=== PATIENT | male | born 1965 ===

== ENCOUNTER 2021-08-19 23:07 | Inpatient (IN) | payer MEDICAID ==
--- NOTE | 2021-08-20 00:22 | Emergency Department Report ---
ED General Adult HPI - General Chief complaint: Medical Clearance Stated complaint: BLEEDING OSTOMY Time Seen by Provider: 08/20/21 00:10 Source: EMS Mode of arrival: Stretcher Limitations: Altered Mental Status, Physical Limitation - History of Present Illness Initial comments: 56-year-old male with a past medical history of diabetes, tach, pancreatitis, traumatic brain injury, with tracheostomy presents to the hospital for bleeding at colostomy site. Bathing patient and change his ostomy bag again had bleeding at the site that would not stop and therefore transferred to the hospital. Patient has a PEG tube, a Martins, and colostomy. This is patient's first visit here and he is previously seen at [place]. Medication list not initially available upon arrival. Patient is nonverbal with functional quadriplegia Severity scale (0 -10): 0 - Related Data Allergies Allergy/AdvReac Type Severity Reaction Status Date / Time No Known Allergies Allergy Verified 08/19/21 23:19 ED Review of Systems ROS: Stated complaint: BLEEDING OSTOMY Other details as noted in HPI Comment: Unobtainable due to pts medical conditions ED Past Medical Hx - Past Medical History Previous Medical History?: Yes Hx Heart Attack/AMI: Yes Hx Diabetes: Yes Additional medical history: PANCREATITIS, TBI - Surgical History Past Surgical History?: Yes ED Physical Exam - General Limitations: Altered Mental Status, Physical Limitation - Other Other exam information: General: No acute distress Head: Atraumatic Eyes: normal appearance Neck: Tracheostomy Chest: Clear to auscultation bilaterally CV: Regular rate and rhythm Abdomen: There is clotted blood at the ostomy stoma without signs of active bleeding. Abdomen soft Back: Normal inspection Extremity: Normal inspection, full range of motion Neuro: Alert, eyes open, nonverbal, functional quadriplegia or ED Course Vital Signs 08/19/21 08/19/21 08/19/21 23:20 23:33 23:45 Pulse Rate 81 84 90 Respiratory 16 18 27 H Rate Blood Pressure 135/67 Blood Pressure 123/81 [Left] O2 Sat by Pulse 98 97 Oximetry O2 Sat by Pulse Oximetry [ Assessment] 08/20/21 08/20/21 08/20/21 00:01 00:10 00:13 Pulse Rate 93 H Respiratory 15 Rate Blood Pressure 109/83 Blood Pressure [Left] O2 Sat by Pulse 97 100 Oximetry O2 Sat by Pulse 100 Oximetry [ Assessment] 08/20/21 08/20/21 08/20/21 00:15 00:31 00:45 Pulse Rate 92 H 90 89 Respiratory 22 19 20 Rate Blood Pressure 113/82 113/82 110/79 Blood Pressure [Left] O2 Sat by Pulse 96 96 97 Oximetry O2 Sat by Pulse Oximetry [ Assessment] 08/20/21 08/20/21 08/20/21 01:01 01:15 01:31 Pulse Rate 89 87 86 Respiratory 18 18 16 Rate Blood Pressure 106/77 105/77 108/79 Blood Pressure [Left] O2 Sat by Pulse 96 97 96 Oximetry O2 Sat by Pulse Oximetry [ Assessment] 08/20/21 08/20/21 08/20/21 01:45 02:01 02:15 Pulse Rate 87 87 86 Respiratory 18 17 22 Rate Blood Pressure 107/76 102/77 109/77 Blood Pressure [Left] O2 Sat by Pulse 97 96 97 Oximetry O2 Sat by Pulse Oximetry [ Assessment] 08/20/21 08/20/21 08/20/21 02:31 02:45 03:01 Pulse Rate 87 86 88 Respiratory 18 20 18 Rate Blood Pressure 109/71 120/81 108/74 Blood Pressure [Left] O2 Sat by Pulse 98 99 99 Oximetry O2 Sat by Pulse Oximetry [ Assessment] 08/20/21 08/20/21 08/20/21 03:15 03:31 03:45 Pulse Rate 84 82 83 Respiratory 17 17 22 Rate Blood Pressure 103/73 112/73 110/72 Blood Pressure [Left] O2 Sat by Pulse 98 99 99 Oximetry O2 Sat by Pulse Oximetry [ Assessment] 08/20/21 04:01 Pulse Rate 90 Respiratory 15 Rate Blood Pressure 104/75 Blood Pressure [Left] O2 Sat by Pulse 97 Oximetry O2 Sat by Pulse Oximetry [ Assessment] - Reevaluation(s) Reevaluation #1: 08/20/21 01:32 Patient's informed that bleeding has stopped. Normal H&H. A plan for admission for IV fluids for dehydration and CT abdomen will be performed - Consultations Consultation #1: 08/20/21 05:44 dr Dow informed of ct results. ED Medical Decision Making - Lab Data Result diagrams: 08/20/21 00:30 08/20/21 00:30 Lab Results 02/20/22 02/20/22 02/20/22 Range/Units 00:30 00:30 00:30 WBC 8.0 (4.5-11.0) K/mm3 RBC 4.34 (3.65-5.03) M/mm3 Hgb 13.5 (11.8-15.2) gm/dl Hct 42.5 (35.5-45.6) % MCV 98 H (84-94) fl MCH 31 (28-32) pg MCHC 32 (32-34) % RDW 15.6 H (13.2-15.2) % Plt Count 178 (140-440) K/mm3 Lymph % (Auto) 30.5 (13.4-35.0) % [place] % (Auto) 6.2 (0.0-7.3) % Eos % (Auto) 2.9 (0.0-4.3) % Baso % (Auto) 0.6 (0.0-1.8) % Lymph # (Auto) 2.4 (1.2-5.4) K/mm3 [place] # (Auto) 0.5 (0.0-0.8) K/mm3 Eos # (Auto) 0.2 (0.0-0.4) K/mm3 Baso # (Auto) 0.0 (0.0-0.1) K/mm3 Seg Neutrophils % 59.8 (40.0-70.0) % Seg Neutrophils # 4.8 (1.8-7.7) K/mm3 PT 15.4 H (12.2-14.9) Sec. INR 1.10 (0.87-1.13) APTT 20.6 L (24.2-36.6) Sec. Sodium 158 H (137-145) mmol/L Potassium 4.5 (3.6-5.0) mmol/L Chloride 116.7 H (98-107) mmol/L Carbon Dioxide 24 (22-30) mmol/L Anion Gap 22 mmol/L BUN 59 H (9-20) mg/dL Creatinine 1.5 H (0.8-1.3) mg/dL Estimated GFR 49 ml/min BUN/Creatinine Ratio 39 % Glucose 122 H (75-100) mg/dL Calcium 10.7 H (8.4-10.2) mg/dL Total Bilirubin 0.60 (0.1-1.2) mg/dL AST 25 (5-40) units/L ALT 13 (7-56) units/L Alkaline Phosphatase 143 H (35-129) units/L Total Protein 8.6 H (6.3-8.2) g/dL Albumin 4.4 (3.9-5) g/dL Albumin/Globulin Ratio 1.0 % Blood Type Antibody Screen 08/20/21 Range/Units 00:30 WBC (4.5-11.0) K/mm3 RBC (3.65-5.03) M/mm3 Hgb (11.8-15.2) gm/dl Hct (35.5-45.6) % MCV (84-94) fl MCH (28-32) pg MCHC (32-34) % RDW (13.2-15.2) % Plt Count (140-440) K/mm3 Lymph % (Auto) (13.4-35.0) % [place] % (Auto) (0.0-7.3) % Eos % (Auto) (0.0-4.3) % Baso % (Auto) (0.0-1.8) % Lymph # (Auto) (1.2-5.4) K/mm3 [place] # (Auto) (0.0-0.8) K/mm3 Eos # (Auto) (0.0-0.4) K/mm3 Baso # (Auto) (0.0-0.1) K/mm3 Seg Neutrophils % (40.0-70.0) % Seg Neutrophils # (1.8-7.7) K/mm3 PT (12.2-14.9) Sec. INR (0.87-1.13) APTT (24.2-36.6) Sec. Sodium (137-145) mmol/L Potassium (3.6-5.0) mmol/L Chloride (98-107) mmol/L Carbon Dioxide (22-30) mmol/L Anion Gap mmol/L BUN (9-20) mg/dL Creatinine (0.8-1.3) mg/dL Estimated GFR ml/min BUN/Creatinine Ratio % Glucose (75-100) mg/dL Calcium (8.4-10.2) mg/dL Total Bilirubin (0.1-1.2) mg/dL AST (5-40) units/L ALT (7-56) units/L Alkaline Phosphatase (35-129) units/L Total Protein (6.3-8.2) g/dL Albumin (3.9-5) g/dL Albumin/Globulin Ratio % Blood Type O POSITIVE Antibody Screen Negative - Radiology Data Radiology results: report reviewed CT ABDOMEN AND PELVIS WITHOUT CONTRAST INDICATION / CLINICAL INFORMATION: bleeding from colostomy stoma. TECHNIQUE: Axial CT images were obtained through the abdomen and pelvis without IV contrast. All CT scans at this location are performed using CT dose reduction for ALARA by means of automated exposure control. COMPARISON: None available. FINDINGS: LOWER CHEST: There are asymmetric airspace opacities within the right lung base. Mild groundglass opacities in the left lung base. LIVER: Indeterminate 2.8 cm hypoattenuating lesion near the dome of the liver anteriorly GALLBLADDER/BILIARY TREE: Gallbladder is unremarkable. The common bile duct is dilated, measuring 1.6 cm. There is abrupt narrowing the region of the pancreatic head. Small amount of gas in the region of the distal common bile duct likely reflects pneumobilia. PANCREAS: There is marked segmental dilation of the pancreatic duct at the body, measuring 1.5 cm. There is abrupt narrowing in the region of the pancreatic head. No acute inflammation SPLEEN: No significant abnormality ADRENALS: No significant abnormality KIDNEYS / URETER: Nonobstructing bilateral nephrolithiasis. No ureteral stone o r hydronephrosis. URINARY BLADDER: Layering stones noted within the bladder, which is partially d ecompressed by Martins catheter. REPRODUCTIVE ORGANS: No significant abnormality STOMACH / BOWEL: Gastrojejunostomy with balloon inflated within the distal stomach. The catheter extends to the midportion of the jejunum. The small bowel is normal in caliber without localized inflammation. Scattered colonic diverticula without evidence of diverticulitis. Normal appendix. LYMPH NODES: Mildly enlarged left periaortic lymph nodes are present. Additional mildly enlarged mesenteric lymph nodes in the central and right abdomen. VASCULATURE: Mild atherosclerotic calcification without acute abnormality. OTHER: Linear tracking extends from the region of the pancreas to the right abdominal wall, could reflect fistula. 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 No acute osseous findings. IMPRESSION: 1. Dilation of the common bile duct and pancreatic duct with irregular soft tissue in the region of the pancreatic head and regional lymphadenopathy, suspicious for pancreatic neoplasm. Soft tissue tract extending from the region of the pancreatic head to the right abdominal wall, likely reflecting fistula. This may be postsurgical in etiology. 2. Airspace consolidation of the right lung base and mild groundglass opacities in the left lung base, concerning for pneumonia. 3. Indeterminate lesion at the hepatic dome, suspicious for metastatic disease. 4. Bilateral nonobstructive renal stones and bladder stones. No evidence of obstructive uropathy. The bladder is partially decompressed by Martins catheter. 5. Other chronic and incidental findings as above. - Medical Decision Making 56-year-old male presents to the hospital with complaints of bleeding from colostomy. Bleeding resolved in the ED. H&H normal. No signs of hypotension. CT abdomen pelvis without contrast shows pancreatic mass and other incidental findings. Possible pulmonary infiltrate noted however, no signs of hypoxia, leukocytosis, or reported fever. IV fluids ordered for dehydration with mild renal insufficiency. Critical Care Time: No Critical care attestation.: If time is entered above; I have spent that time in minutes in the direct care o f this critically ill patient, excluding procedure time. ED Disposition Clinical Impression: Bleeding from colostomy, Tracheostomy dependence, Pancreatic mass, History of traumatic brain injury, Dehydration, Renal insufficiency Disposition: 09 ADMITTED INPATIENT Is pt being admited?: Yes Condition: Stable
[2021-08-20 00:46] LABS: Basophils % (Auto) 0.6 % (0.0-1.8); Eosinophils # (Auto) 0.2 K/mm3 (0.0-0.4); Eosinophils % (Auto) 2.9 % (0.0-4.3); Hematocrit 42.5 % (35.5-45.6); Hemoglobin 13.5 gm/dl (11.8-15.2); Lymphocytes # (Auto) 2.4 K/mm3 (1.2-5.4); Lymphocytes % (Auto) 30.5 % (13.4-35.0); Mean Corpuscular HGB Conc 32 % (32-34); Mean Corpuscular Volume 98 fl (84-94); Monocytes # (Auto) 0.5 K/mm3 (0.0-0.8); Monocytes % (Auto) 6.2 % (0.0-7.3); Platelet Count 178 K/mm3 (140-440); Red Blood Count 4.34 M/mm3 (3.65-5.03); Red Cell Distribution Width 15.6 % (13.2-15.2)
[2021-08-20 01:10] LABS: Albumin 4.4 g/dL (3.9-5); Calcium 10.7 mg/dL (8.4-10.2)
[2021-08-20 01:16] LABS: INR 1.1 (0.87-1.13); Partial Thromboplastin Time 20.6 Sec. (24.2-36.6)
[2021-08-20] MEDS ORDERED: SODIUM CHLORIDE 0.9% 1000 ML 1,000 ML IV ONE (01:29)
[2021-08-20] MEDS ORDERED: ONDANSETRON 4 MG/2 ML INJ IV PRN (02:19)
[2021-08-20] MEDS ORDERED: MORPHINE 4 MG/1 ML INJ IV PRN (02:19)
[2021-08-20] MEDS ORDERED: MORPHINE 2 MG/1 ML INJ IV PRN (02:19)
[2021-08-20] MEDS ORDERED: ACETAMINOPHEN 325 MG TAB PO PRN (02:19)
[2021-08-20] MEDS ORDERED: MAGNESIUM HYDROXIDE (MOM) ORAL LIQD UDC PO PRN (02:19)
[2021-08-20] MEDS ORDERED: DEXTROSE 50% IN WATER (25GM) 50 ML SYRINGE IV PRN (02:19)
--- NOTE | 2021-08-20 02:29 | History and Physical Report ---
History of Present Illness Date of examination: 08/20/21 Date of admission: 08/20/2021 Chief complaint: Colostomy site bleeding History of present illness: 56-year-old male with known history of diabetes mellitus, traumatic brain injury, history of pancreatitis, history of trach placement presents to the emergency room today with bleeding at the colostomy site. Patient was said to have been cared for while bathing colostomy bag was found to be bleeding and graft was transferred to the hospital for further evaluation. Most of the history was obtained from the ER staff as patient is nonverbal. Patient is also quadriplegic. Work-up in the emergency room today, CT of the abdomen and pelvis reveals: 1. Dilation of the common bile duct and pancreatic duct with irregular soft tissue in the region of the pancreatic head and regional lymphadenopathy, suspicious for pancreatic neoplasm. Soft tissue tract extending from the region of the pancreatic head to the right abdominal wall, likely reflecting fistula. This may be postsurgical in etiology. 2. Airspace consolidation of the right lung base and mild groundglass opacities in the left lung base, concerning for pneumonia. 3. Indeterminate lesion at the hepatic dome, suspicious for metastatic disease. 4. Bilateral nonobstructive renal stones and bladder stones. No evidence of obstructive uropathy. The bladder is partially decompressed by Martins catheter. Lab reveals hyponatremia 158, BUN of 15 and creatinine of 1.5. Patient placed on IV fluid for dehydration. Will also be placed on empiric IV antibiotics for underlying pneumonia. Past History Past Medical History: acute SC, diabetes, hypertension, other (TBI, pancreatitis) Past Surgical History: Other (PEG tube placement, trach placement, colostomy placement) Social history: no significant social history Family history: no significant family history Medications and Allergies Allergies Allergy/AdvReac Type Severity Reaction Status Date / Time No Known Allergies Allergy Verified 08/19/21 23:19 Active Meds: Active Medications Sodium Chloride (Nacl 0.9% 1000 Ml) 1,000 mls @ 999 mls/hr IV BOLUS ONE Stop: 08/20/21 02:29 Review of Systems ROS unobtainable: due to mental status Exam - Constitutional Vitals: Temp Pulse Resp BP Pulse Ox 89 18 106/77 96 08/20/21 01:01 08/20/21 01:01 08/20/21 01:01 08/20/21 01:01 General appearance: Present: no acute distress, well-nourished - EENT Eyes: Present: PERRL, EOM intact. Absent: scleral icterus ENT: hearing intact, clear oral mucosa, dentition normal - Neck Neck: Present: supple, normal ROM - Respiratory Respiratory effort: normal, other (Trach in place) Respiratory: bilateral: CTA - Cardiovascular Rhythm: regular Heart Sounds: Present: S1 & S2. Absent: gallop, systolic murmur, diastolic murmur, rub, click - Extremities Extremities: no ischemia, pulses intact, pulses symmetrical, No edema, normal temperature, normal color, Full ROM Peripheral Pulses: within normal limits - Abdominal General gastrointestinal: Present: soft, non-tender, non-distended, normal bowel sounds, other (PEG tube in place, colostomy tube in place). Absent: mass - Integumentary Integumentary: Present: clear, warm, dry, normal turgor. Absent: rash - Musculoskeletal Musculoskeletal: strength equal bilaterally - Psychiatric Psychiatric: cooperative - Neurologic Neurologic: CNII-XII intact Results - Labs CBC & Chem 7: 08/20/21 00:30 08/20/21 00:30 Labs: Abnormal lab results 08/20/21 08/20/21 08/20/21 Range/Units 00:30 00:30 00:30 MCV 98 H (84-94) fl RDW 15.6 H (13.2-15.2) % PT 15.4 H (12.2-14.9) Sec. APTT 20.6 L (24.2-36.6) Sec. Sodium 158 H (137-145) mmol/L Chloride 116.7 H (98-107) mmol/L BUN 59 H (9-20) mg/dL Creatinine 1.5 H (0.8-1.3) mg/dL Glucose 122 H (75-100) mg/dL Calcium 10.7 H (8.4-10.2) mg/dL Alkaline Phosphatase 143 H (35-129) units/L Total Protein 8.6 H (6.3-8.2) g/dL Assessment and Plan - Patient Problems (1) Bleeding from colostomy Current Visit: Yes Status: Acute Plan to address problem: Consult placed to general surgery for evaluation and recommendations. We will monitor CBC. (2) Dehydration Current Visit: Yes Status: Acute Plan to address problem: Patient placed on IV fluid. We will monitor chemistry. (3) History of traumatic brain injury Current Visit: Yes Status: Acute (4) Renal insufficiency Current Visit: Yes Status: Acute Plan to address problem: Consult placed to nephrology for evaluation. We will continue on IV fluid. (5) Tracheostomy dependence Current Visit: Yes Status: Acute Plan to address problem: Stable. (6) DVT prophylaxis Current Visit: Yes Status: Acute Plan to address problem: Patient placed on sequential compression device. (7) Full code status Current Visit: Yes Status: Acute Plan to address problem: Patient is full code. (8) Pneumonia Current Visit: Yes Status: Acute Plan to address problem: Patient placed on empiric IV antibiotics. We will also screen for COVID-19.
[2021-08-20] MEDS ORDERED: SODIUM CHLORIDE 0.9% 1000 ML 1,000 ML IV SCH (02:30)
[2021-08-20] MEDS ORDERED: DEXTROSE 10% *Hypoglycemia IV PRN (02:31)
--- NOTE | 2021-08-20 04:56 | Cat Scan Report ---
CT ABDOMEN AND PELVIS WITHOUT CONTRAST INDICATION / CLINICAL INFORMATION: bleeding from colostomy stoma. TECHNIQUE: Axial CT images were obtained through the abdomen and pelvis without IV contrast. All CT scans at this location are performed using CT dose reduction for ALARA by means of automated exposure control. COMPARISON: None available. FINDINGS: LOWER CHEST: There are asymmetric airspace opacities within the right lung base. Mild groundglass opa cities in the left lung base. LIVER: Indeterminate 2.8 cm hypoattenuating lesion near the dome of the liver anteriorly GALLBLADDER/BILIARY TREE: Gallbladder is unremarkable. The common bile duct is dilated, measuring 1.6 cm. There is abrupt narrowing the region of the pancreatic head. Small amount of gas in the region o f the distal common bile duct likely reflects pneumobilia. PANCREAS: There is marked segmental dilation of the pancreatic duct at the body, measuring 1.5 cm. Th ere is abrupt narrowing in the region of the pancreatic head. No acute inflammation SPLEEN: No significant abnormality ADRENALS: No significant abnormality KIDNEYS / URETER: Nonobstructing bilateral nephrolithiasis. No ureteral stone or hydronephrosis. URINARY BLADDER: Layering stones noted within the bladder, which is partially decompressed by Martins c atheter. REPRODUCTIVE ORGANS: No significant abnormality STOMACH / BOWEL: Gastrojejunostomy with balloon inflated within the distal stomach. The catheter exte nds to the midportion of the jejunum. The small bowel is normal in caliber without localized inflamma tion. Scattered colonic diverticula without evidence of diverticulitis. Normal appendix. LYMPH NODES: Mildly enlarged left periaortic lymph nodes are present. Additional mildly enlarged mese nteric lymph nodes in the central and right abdomen. VASCULATURE: Mild atherosclerotic calcification without acute abnormality. OTHER: Linear tracking extends from the region of the pancreas to the right abdominal wall, could ref lect fistula. SKELETAL SYSTEM: Extensive heterotopic ossification involving both hips with complete bone bridging e xtending from the left lesser trochanter to the anterior and posterior acetabulum. No acute osseous f indings. IMPRESSION: 1. Dilation of the common bile duct and pancreatic duct with irregular soft tissue in the region of t he pancreatic head and regional lymphadenopathy, suspicious for pancreatic neoplasm. Soft tissue trac t extending from the region of the pancreatic head to the right abdominal wall, likely reflecting fis yuriy. This may be postsurgical in etiology. 2. Airspace consolidation of the right lung base and mild groundglass opacities in the left lung base , concerning for pneumonia. 3. Indeterminate lesion at the hepatic dome, suspicious for metastatic disease. 4. Bilateral nonobstructive renal stones and bladder stones. No evidence of obstructive uropathy. The bladder is partially decompressed by Martins catheter. 5. Other chronic and incidental findings as above. Signer Name: Aristides Funes MD Signed: 08/20/2021 4:51 AM Workstation Name: [id number]
[2021-08-20] MEDS ORDERED: VANCOMYCIN PHARMACY TO DOSE IV SCH (07:00)
[2021-08-20] MEDS ORDERED: VANCOMYCIN 1,750 MG in SODIUM CHLORIDE 0.9% 500 ML 500 ML IV SCH (07:45)
[2021-08-20] MEDS ORDERED: CEFEPIME/NS 2 GM/100 ML 2 GM/100 ML BAG IV SCH (08:00)
[2021-08-20] MEDS: INSULIN LISPRO 100 UNIT/ML SUB-Q SCH ×4 (08:15→22:27)
[2021-08-20 08:23] LABS: C-Reactive Protein 3.1 mg/dL (0.00-1.30)
--- NOTE | 2021-08-20 09:14 | Consultation ---
History of Present Illness Consult date: 08/20/21 Reason for consult: wound care - History of present illness History of present illness: General surgery called to see 56-year-old male presented from nursing facility with " bleeding from colostomy". Patient has a complicated surgical and medical history to include paraplegia, tracheostomy, G-tube, pancreatitis. Past History Past Medical History: acute [place], diabetes, hypertension, other (TBI, pancreatitis) Past Surgical History: Other (PEG tube placement, trach placement, colostomy placement) Social history: no significant social history Family history: no significant family history Medications and Allergies Allergies Allergy/AdvReac Type Severity Reaction Status Date / Time No Known Allergies Allergy Verified 08/19/21 23:19 Active Meds: Active Medications Acetaminophen (Acetaminophen 325 Mg Tab) 650 mg PO Q4H PRN PRN Reason: Pain MILD(1-3)/Fever >100.5/RIBERA Dextrose (Dextrose 10% *Hypoglycemia) 0 ml IV DIRECT PRN; Protocol PRN Reason: Hypoglycemia Sodium Chloride (Nacl 0.9% 1000 Ml) 1,000 mls @ 125 mls/hr IV DIRECT TRACEE Last Admin: 08/20/21 06:25 Dose: 125 mls/hr Levofloxacin/Dextrose (Levaquin 750mg/150ml) 750 mg in 150 mls @ 100 mls/hr IV Q24H TRACEE; Protocol Last Admin: 08/20/21 08:15 Dose: 100 mls/hr Cefepime HCl (Cefepime/Ns 2 Gm/100 Ml) 2 gm in 100 mls @ 200 mls/hr IV Q8H TRACEE; Protocol Last Admin: 08/20/21 08:15 Dose: 200 mls/hr Vancomycin HCl 1,750 mg/ (Sodium Chloride) 535 mls @ 333.333 mls/hr IV Q24H TRACEE Insulin Human Lispro (Insulin Lispro 100 Unit/Ml) 0 unit SUB-Q ACHS TRACEE; Kelsi col Last Admin: 08/20/21 08:15 Dose: 2 unit Magnesium Hydroxide (Magnesium Hydroxide (Mom) Oral Liqd Udc) 30 ml PO Q4H PRN PRN Reason: Constipation Morphine Sulfate (Morphine 2 Mg/1 Ml Inj) 2 mg IV Q4H PRN PRN Reason: Pain, Moderate (4-6) Morphine Sulfate (Morphine 4 Mg/1 Ml Inj) 4 mg IV Q4H PRN PRN Reason: Pain , Severe (7-10) Ondansetron HCl (Ondansetron 4 Mg/2 Ml Inj) 4 mg IV Q8H PRN PRN Reason: Nausea And Vomiting Sodium Chloride (Sodium Chloride 0.9% 10 Ml Flush Syringe) 10 ml IV BID TRACEE Sodium Chloride (Sodium Chloride 0.9% 10 Ml Flush Syringe) 10 ml IV PRN PRN PRN Reason: LINE FLUSH Review of Systems ROS unobtainable: due to mental status Exam Vital Signs Pulse Resp BP Pulse Ox 81 16 123/81 98 08/19/21 23:20 08/19/21 23:20 08/19/21 23:20 08/19/21 23:20 - General physical appearance Positive: no distress, no pain, chronically ill - Eyes Negative: icteric - Respiratory Positive: normal expansion, normal respiratory effort, other (Tracheostomy in place) - Cardiovascular Heart Sounds: Present: S1 & S2 - Extremities Extremities: no ischemia - Abdomen Abdomen: Present: other (Soft, nontender, G-tube in place, ostomy appliance over right midabdomen more consistent with fistula than colostomy. Clean with no active bleeding) Results - Labs 08/20/21 00:30 08/20/21 07:19 Abnormal lab results 08/20/21 08/20/21 08/20/21 Range/Units 00:30 00:30 00:30 MCV 98 H (84-94) fl RDW 15.6 H (13.2-15.2) % PT 15.4 H (12.2-14.9) Sec. APTT 20.6 L (24.2-36.6) Sec. D-Dimer (0-234) ng/mlDDU Sodium 158 H (137-145) mmol/L Chloride 116.7 H (98-107) mmol/L BUN 59 H (9-20) mg/dL Creatinine 1.5 H (0.8-1.3) mg/dL Glucose 122 H (75-100) mg/dL POC Glucose (70-105) mg/dL Calcium 10.7 H (8.4-10.2) mg/dL Ferritin (30.0-300.0) ng/mL Alkaline Phosphatase 143 H (35-129) units/L C-Reactive Protein (0.00-1.30) mg/dL Total Protein 8.6 H (6.3-8.2) g/dL 08/20/21 08/20/21 08/20/21 Range/Units 07:19 07:19 07:19 MCV (84-94) fl RDW (13.2-15.2) % PT (12.2-14.9) Sec. APTT (24.2-36.6) Sec. D-Dimer 342.69 H (0-234) ng/mlDDU Sodium (137-145) mmol/L Chloride (98-107) mmol/L BUN (9-20) mg/dL Creatinine (0.8-1.3) mg/dL Glucose 123 H (75-100) mg/dL POC Glucose (70-105) mg/dL Calcium (8.4-10.2) mg/dL Ferritin 373.6 H (30.0-300.0) ng/mL Alkaline Phosphatase (35-129) units/L C-Reactive Protein 3.10 H (0.00-1.30) mg/dL Total Protein (6.3-8.2) g/dL 08/20/21 Range/Units 07:44 MCV (84-94) fl RDW (13.2-15.2) % PT (12.2-14.9) Sec. APTT (24.2-36.6) Sec. D-Dimer (0-234) ng/mlDDU Sodium (137-145) mmol/L Chloride (98-107) mmol/L BUN (9-20) mg/dL Creatinine (0.8-1.3) mg/dL Glucose (75-100) mg/dL POC Glucose 117 H (70-105) mg/dL Calcium (8.4-10.2) mg/dL Ferritin (30.0-300.0) ng/mL Alkaline Phosphatase (35-129) units/L C-Reactive Protein (0.00-1.30) mg/dL Total Protein (6.3-8.2) g/dL Diabetes panel 08/20/21 08/20/21 Range/Units 00:30 07:19 Sodium 158 H (137-145) mmol/L Potassium 4.5 (3.6-5.0) mmol/L Chloride 116.7 H (98-107) mmol/L Carbon Dioxide 24 (22-30) mmol/L BUN 59 H (9-20) mg/dL Creatinine 1.5 H (0.8-1.3) mg/dL Glucose 122 H 123 H (75-100) mg/dL Calcium 10.7 H (8.4-10.2) mg/dL AST 25 (5-40) units/L ALT 13 (7-56) units/L Alkaline Phosphatase 143 H (35-129) units/L Total Protein 8.6 H (6.3-8.2) g/dL Albumin 4.4 (3.9-5) g/dL Calcium panel 08/20/21 Range/Units 00:30 Calcium 10.7 H (8.4-10.2) mg/dL Albumin 4.4 (3.9-5) g/dL Pituitary panel 08/20/21 08/20/21 Range/Units 00:30 07:19 Sodium 158 H (137-145) mmol/L Potassium 4.5 (3.6-5.0) mmol/L Chloride 116.7 H (98-107) mmol/L Carbon Dioxide 24 (22-30) mmol/L BUN 59 H (9-20) mg/dL Creatinine 1.5 H (0.8-1.3) mg/dL Glucose 122 H 123 H (75-100) mg/dL Calcium 10.7 H (8.4-10.2) mg/dL Adrenal panel 08/20/21 08/20/21 Range/Units 00:30 07:19 Sodium 158 H (137-145) mmol/L Potassium 4.5 (3.6-5.0) mmol/L Chloride 116.7 H (98-107) mmol/L Carbon Dioxide 24 (22-30) mmol/L BUN 59 H (9-20) mg/dL Creatinine 1.5 H (0.8-1.3) mg/dL Glucose 122 H 123 H (75-100) mg/dL Calcium 10.7 H (8.4-10.2) mg/dL Total Bilirubin 0.60 (0.1-1.2) mg/dL AST 25 (5-40) units/L ALT 13 (7-56) units/L Alkaline Phosphatase 143 H (35-129) units/L Total Protein 8.6 H (6.3-8.2) g/dL Albumin 4.4 (3.9-5) g/dL - Imaging CT scan - abdomen: report reviewed, image reviewed CT scan - pelvis: report reviewed, image reviewed Assessment and Plan 56-year-old male with report of bleeding from ostomy which is likely a fistula. CT scan suggest fistula from pancreas. No active bleeding appreciated. Patient is afebrile and stable. No surgical intervention warranted at this time. Of note patient has pancreatic mass seen on CT scan will consult GI for work-up if not already done.
[2021-08-20] MEDS ORDERED: SODIUM BICARBONATE 325 MG TAB FEEDTUBE PRN (11:34)
[2021-08-20] MEDS ORDERED: LIPASE 10,500/PROTEASE 25,000/AMYLASE 43,750 (UNITS) DR CAP FEEDTUBE PRN (11:34)
[2021-08-20] MEDS ORDERED: SIMPLE SYRUP 15 ML FEEDTUBE PRN ×2 (11:34)
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
--- NOTE | 2021-08-20 14:16 | Consultation ---
History of Present Illness - Reason for Consult Consult date: 08/20/21 acute renal failure, hypernatremia - History of Present Illness Mr. Del Real is a 56-year-old quadraplegic male with hx of TBI w/ trach, type II diabetes, and pancreatitis who presented to the ED w/ c/o bleeding at colostomy site. While changing colostomy bag, patient was noted to have bleeding at ostomy site that would not stop. Labs at admission were notable for Na 158, BUN 59, SCr 1.5. Nephrology has been consulted for management of hypernatremia. Imaging notable for pancreatic head soft tissue mass and pancreatic fistula Past History Past Medical History: acute [place], diabetes, hypertension, other (TBI, pancreatitis) Past Surgical History: Other (PEG tube placement, trach placement, colostomy placement) Social history: no significant social history Family history: no significant family history Medications and Allergies Allergies Allergy/AdvReac Type Severity Reaction Status Date / Time No Known Allergies Allergy Verified 08/19/21 23:19 Active Meds: Active Medications Acetaminophen (Acetaminophen 325 Mg Tab) 650 mg PO Q4H PRN PRN Reason: Pain MILD(1-3)/Fever >100.5/RIBERA Lipase/Protease/Amylase (Lipase 10,500/Protease 25,000/Amylase 43,750 (Units) Dr Reynolds) 1 each FEEDTUBE PRN PRN PRN Reason: For Clogged Feeding Tube Dextrose (Dextrose 10% *Hypoglycemia) 0 ml IV DIRECT PRN; Protocol PRN Reason: Hypoglycemia Sodium Chloride (Nacl 0.9% 1000 Ml) 1,000 mls @ 125 mls/hr IV DIRECT TRACEE Last Admin: 08/20/21 06:25 Dose: 125 mls/hr Levofloxacin/Dextrose (Levaquin 750mg/150ml) 750 mg in 150 mls @ 100 mls/hr IV Q24H TRACEE; Protocol Last Admin: 08/20/21 08:15 Dose: 100 mls/hr Vancomycin HCl 1,500 mg/ (Sodium Chloride) 530 mls @ 333.333 mls/hr IV Q24H TRACEE Cefepime HCl (Cefepime/Ns 2 Gm/100 Ml) 2 gm in 100 mls @ 200 mls/hr IV Q12H TRACEE; Protocol Insulin Human Lispro (Insulin Lispro 100 Unit/Ml) 0 unit SUB-Q ACHS TRACEE; Protocol Last Admin: 08/20/21 11:55 Dose: Not Given Magnesium Hydroxide (Magnesium Hydroxide (Mom) Oral Liqd Udc) 30 ml PO Q4H PRN PRN Reason: Constipation Morphine Sulfate (Morphine 2 Mg/1 Ml Inj) 2 mg IV Q4H PRN PRN Reason: Pain, Moderate (4-6) Morphine Sulfate (Morphine 4 Mg/1 Ml Inj) 4 mg IV Q4H PRN PRN Reason: Pain , Severe (7-10) Ondansetron HCl (Ondansetron 4 Mg/2 Ml Inj) 4 mg IV Q8H PRN PRN Reason: Nausea And Vomiting Simple Syrup (Simple Syrup 15 Ml) 15 ml FEEDTUBE PRN PRN PRN Reason: Hypoglycemia Simple Syrup (Simple Syrup 15 Ml) 30 ml FEEDTUBE PRN PRN PRN Reason: Hypoglycemia Sodium Bicarbonate (Sodium Bicarbonate 325 Mg Tab) 325 mg FEEDTUBE PRN PRN PRN Reason: For Clogged Feeding Tube Sodium Chloride (Sodium Chloride 0.9% 10 Ml Flush Syringe) 10 ml IV BID [facility] Last Admin: 08/20/21 09:44 Dose: 10 ml Sodium Chloride (Sodium Chloride 0.9% 10 Ml Flush Syringe) 10 ml IV PRN PRN PRN Reason: LINE FLUSH Review of Systems ROS unobtainable: due to mental status Exam - Vital Signs Vital signs: Vital Signs Pulse Resp BP Pulse Ox 81 16 123/81 98 08/19/21 23:20 08/19/21 23:20 08/19/21 23:20 08/19/21 23:20 - General Appearance General appearance: well-developed, well-nourished EENT: ATNC Neck: Present: Other (trach) Respiratory: Decreased Breath Sounds Heart: regular, S1S2 Gastrointestinal: Present: other (PEG tube) Integumentary: no rash, warm and dry Musculoskeletal: Present: other (no edema) Results - Lab Results 08/20/21 00:30 08/20/21 07:19 Most recent lab results Calcium 10.7 mg/dL (8.4-10.2) H 08/20/21 00:30 Assessment and Plan Impression: * Acute kidney injury secondary to dehydration * Hypernatremia * Pancreatic mass * Bilateral PNA --CT abd/pelvis: Airspace consolidation of the right lung base and mild groundglass opacities in the left lung base --COVID 19 PCR negative (Aug 19) * Pancreaticocutaneous fistula * Nephrolithiasis, nonobstructive * Quadraplegia * Chronic respiratory failure s/p trach Plan: * Start free H2O w/ TF - 200ml [id number] - discussed with RN * Start D5W 100ml/hour - discussed with RN * Obtain U/A, urine lytes * Abd/Pelvis CT reviewed - no hydro, bilateral stones which are nonobstructive * Abx per primary team - Vanco/Cefepime/Levaquin * Surgery recommendations noted * GI consultation pending * Avoid potential nephrotoxins * Dose medications for renal function - monitor Vanco levels closely * AM labs ordered
[2021-08-20] MEDS: DEXTROSE 5% IN WATER 1,000 ML IV SCH (15:37)
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
[2021-08-20] MEDS: CEFEPIME/NS 2 GM/100 ML 2 GM/100 ML BAG IV SCH (20:07)
[2021-08-20 22:49] LABS: Amorphous Crystals,Urine Few; Bacteria,Urine 3+ /HPF (Negative); Bilirubin,Urine NEG (Negative); Blood,Urine LG (Negative); Color,Urine Yellow (Yellow); Hyaline Casts,Urine 7 /LPF; Mucus,Urine 2+ /HPF; Urobilinogen,Urine < 2.0 mg/dL (<2.0)
[2021-08-20 22:50] LABS: RBC,Urine > 182.0 /HPF (0.0-6.0)
[2021-08-20 23:03] LABS: Creatinine,Urine 106.4 mg/dL (0.1-20.0)
[2021-08-21] MEDS: DEXTROSE 5% IN WATER 1,000 ML IV SCH (01:06)
[2021-08-21] MEDS: CEFEPIME/NS 2 GM/100 ML 2 GM/100 ML BAG IV SCH ×2 (08:37→21:33)
[2021-08-21 09:12] LABS: Basophils % (Auto) 0.2 % (0.0-1.8); Eosinophils # (Auto) 0.2 K/mm3 (0.0-0.4); Eosinophils % (Auto) 3.6 % (0.0-4.3); Hematocrit 34.2 % (35.5-45.6); Hemoglobin 11.1 gm/dl (11.8-15.2); Lymphocytes # (Auto) 1.4 K/mm3 (1.2-5.4); Lymphocytes % (Auto) 20.2 % (13.4-35.0); Mean Corpuscular HGB Conc 33 % (32-34); Mean Corpuscular Volume 97 fl (84-94); Monocytes # (Auto) 0.6 K/mm3 (0.0-0.8); Monocytes % (Auto) 8.7 % (0.0-7.3); Platelet Count 136 K/mm3 (140-440); Red Blood Count 3.54 M/mm3 (3.65-5.03); Red Cell Distribution Width 15.5 % (13.2-15.2)
[2021-08-21 09:30] LABS: BUN/Creatinine Ratio 38; Blood Urea Nitrogen 46 mg/dL (9-20); Calcium 10.1 mg/dL (8.4-10.2); Hemolysis Index 15
--- NOTE | 2021-08-21 10:19 | Progress Note ---
Assessment and Plan Impression: * Acute kidney injury secondary to dehydration * Hypernatremia * Pancreatic mass * Bilateral PNA --CT abd/pelvis: Airspace consolidation of the right lung base and mild groundglass opacities in the left lung base --COVID 19 PCR negative (Aug 19) * Pancreaticocutaneous fistula * Nephrolithiasis, nonobstructive * Quadraplegia * Chronic respiratory failure s/p trach Plan: * Sodium improving 158->150, creatinine 1.5->1.2 * Continue free H2O w/ TF - 200ml [id number] * Continue D5W 100ml/hour for now * Urine studies reviewed * Abd/Pelvis CT reviewed - no hydro, bilateral stones which are nonobstructive * Abx per primary team - Vanco/Cefepime/Levaquin * Surgery recommendations noted * GI consultation noted * Avoid potential nephrotoxins * Dose medications for renal function - monitor Vanco levels closely * AM labs Subjective Date of service: 08/21/21 Interval history: Resting in bed, no major clinical changes noted. Running on D5W, tube feeds. Chart, vitals, labs reviewed Objective - Exam Narrative Exam: General appearance: well-developed, well-nourished EENT: ATNC Neck: Present: Other (trach) Respiratory: Decreased Breath Sounds Heart: regular, S1S2 Gastrointestinal: Present: other (PEG tube) Integumentary: no rash, warm and dry Musculoskeletal: Present: other (no edema) - Vital Signs Vital signs: Vital Signs - 12hr 08/21/21 08/21/21 02:30 04:46 Temperature 98.2 F Pulse Rate 79 Respiratory 18 Rate Blood Pressure 103/72 O2 Sat by Pulse 98 Oximetry O2 Sat by Pulse 100 Oximetry [ Assessment] - Lab 08/21/21 08:51 08/21/21 08:51 Most recent lab results Calcium 10.1 mg/dL (8.4-10.2) 08/21/21 08:51 Urine Creatinine 106.4 mg/dL (0.1-20.0) H 08/20/21 21:45 Urine Sodium 51 mmol/L 08/20/21 21:45 Medications & Allergies - Medications Allergies/Adverse Reactions: Allergies No Known Allergies Allergy (Verified 08/19/21 23:19) Active Medications: Generic Name Dose Route Start Last Admin Trade Name Freq PRN Reason Stop Dose Admin Acetaminophen 650 mg 08/20/21 02:19 Acetaminophen 325 Mg Tab PO Q4H PRN Pain MILD(1-3)/Fever >100.5/RIBERA Lipase/Protease/Amylase 1 each 08/20/21 11:34 Lipase 10,500/Protease 25,000/Amylase 43,750 (Units) Dr Rodolfo FEEDTUBE PRN PRN For Clogged Feeding Tube Dextrose 0 ml 08/20/21 02:31 Dextrose 10% *Hypoglycemia IV DIRECT PRN Hypoglycemia Protocol Levofloxacin/Dextrose 750 mg in 150 mls @ 100 mls/hr 08/20/21 07:00 08/21/21 06:21 Levaquin 750mg/150ml IV 08/22/21 06:59 100 mls/hr Q24H TRACEE Administration Protocol Vancomycin HCl 1,500 mg/ 530 mls @ 333.333 mls/hr 08/21/21 10:00 Sodium Chloride IV 08/24/21 11:59 Q24H TRACEE Cefepime HCl 2 gm in 100 mls @ 200 mls/hr 08/20/21 20:00 08/21/21 08:37 Cefepime/Ns 2 Gm/100 Ml IV 08/24/21 20:29 200 mls/hr Q12H TRACEE Administration Protocol Lactated Ringer's 1,000 mls @ 100 mls/hr 08/21/21 08:30 Lactated Ringers IV DIRECT TRACEE Insulin Human Lispro 0 unit 08/20/21 07:30 08/20/21 22:27 Insulin Lispro 100 Unit/Ml SUB-Q Not Given ACHS TRACEE Protocol Magnesium Hydroxide 30 ml 08/20/21 02:19 Magnesium Hydroxide (Mom) Oral Liqd Udc PO Q4H PRN Constipation Morphine Sulfate 2 mg 08/20/21 02:19 Morphine 2 Mg/1 Ml Inj IV Q4H PRN Pain, Moderate (4-6) Morphine Sulfate 4 mg 08/20/21 02:19 Morphine 4 Mg/1 Ml Inj IV Q4H PRN Pain , Severe (7-10) Ondansetron HCl 4 mg 08/20/21 02:19 Ondansetron 4 Mg/2 Ml Inj IV Q8H PRN Nausea And Vomiting Simple Syrup 15 ml 08/20/21 11:34 Simple Syrup 15 Ml FEEDTUBE PRN PRN Hypoglycemia Simple Syrup 30 ml 08/20/21 11:34 Simple Syrup 15 Ml FEEDTUBE PRN PRN Hypoglycemia Sodium Bicarbonate 325 mg 08/20/21 11:34 Sodium Bicarbonate 325 Mg Tab FEEDTUBE PRN PRN For Clogged Feeding Tube Sodium Chloride 10 ml 08/20/21 10:00 08/20/21 22:13 Sodium Chloride 0.9% 10 Ml Flush Syringe IV 10 ml BID TRACEE Administration Sodium Chloride 10 ml 08/20/21 02:19 Sodium Chloride 0.9% 10 Ml Flush Syringe IV PRN PRN LINE FLUSH
[2021-08-21] MEDS: INSULIN LISPRO 100 UNIT/ML SUB-Q SCH ×4 (10:41→23:17)
[2021-08-21] MEDS: VANCOMYCIN 1,500 MG in SODIUM CHLORIDE 0.9% 500 ML 500 ML IV SCH (10:41)
--- NOTE | 2021-08-21 13:52 | Progress Note ---
Assessment and Plan 1. Bleeding from fistula -08/21/21 - no evidence of bleeding. Hgb down to 11, but no evidence of bleeding, so may be equilibration. Red rubber catheter noted in stoma. - may discharge to home and have pt follow up with primary Surgery team at [place], or get CT angio to check for pseudoaneurysm (less likely) - will need to resume anticoagulation/home meds, given hx of PE. - See below for remainder of plans. WILL SIGN OFF. PLEASE CALL IF NEEDED. 08/20/21 - based on the available history, this is a very complex situation. I suspect that the patient had necrotizing pancreatitis and that he may well have a red rubber catheter that is being used to gradually drain the area of necrosis and allow for healing of the area of necrosis gradually from within. He may well have blood from it yesterday as a result of recently having been started on blood thinners for pulmonary embolism. The possibility of a pseudoaneurysm from the splenic artery occurring in the region of pancreatic necrosis is much less likely given the mechanical trauma of the red rubber catheter going in and out and the patient being on blood thinners. Currently, he is not bleeding. Daughter states that patient is followed by [place] surgery. Would try and get medications list and resume home meds including anticoagulation. May need to reinitiate red rubber tube drainage in order to keep tract open and allow for ongoing healing of chronic necrotizing pancreatitis, but will discuss with surgery. If bleeding recurs, would obtain CT angiogram to look for evidence of splenic artery pseudoaneurysm. If patient continues to do well, would discharge soon and refer back to [place] surgery for ongoing management. If necessary, may need to transfer. Would reinitiate gastrojejunostomy tube feedings at what ever the home regimen has been. Monitor hemoglobin and transfuse if needed. Discussed with patient's daughter regarding complexity of case and need for more data about his history. Subjective Date of service: 08/21/21 Interval history: No clinical change in pt. No evidence of bleeding from stoma or GI tract. Objective - Constitutional Vitals: Vital Signs - 12hr 08/21/21 08/21/21 08/21/21 02:30 04:46 09:40 Temperature 98.2 F Pulse Rate 79 Respiratory 18 Rate Blood Pressure 103/72 O2 Sat by Pulse 98 Oximetry O2 Sat by Pulse 100 98 Oximetry [ Assessment] 08/21/21 10:00 Temperature Pulse Rate Respiratory Rate Blood Pressure O2 Sat by Pulse 99 Oximetry O2 Sat by Pulse Oximetry [ Assessment] General appearance: Present: no acute distress, other (unresponsive, with trach collar. Staring up at ceiling.) - EENT Eyes: PERRL - Respiratory Respiratory effort: normal - Gastrointestinal General gastrointestinal: Present: soft, non-tender, other (red rubber catheter in stoma, with no blood noted in stoma bag) - Labs CBC & Chem 7: 08/21/21 08:51 08/21/21 08:51 Labs: Abnormal lab results 08/20/21 08/20/21 08/20/21 Range/Units 16:49 21:45 21:45 RBC (3.65-5.03) M/mm3 Hgb (11.8-15.2) gm/dl Hct (35.5-45.6) % MCV (84-94) fl RDW (13.2-15.2) % Plt Count (140-440) K/mm3 [place] % (Auto) (0.0-7.3) % Sodium (137-145) mmol/L Chloride (98-107) mmol/L Carbon Dioxide (22-30) mmol/L BUN (9-20) mg/dL Glucose (75-100) mg/dL POC Glucose 126 H (70-105) mg/dL Urine WBC (Auto) 146.0 H (0.0-6.0) /HPF Urine Creatinine 106.4 H (0.1-20.0) mg/dL 08/20/21 08/21/21 08/21/21 Range/Units 22:19 08:51 08:51 RBC 3.54 L (3.65-5.03) M/mm3 Hgb 11.1 L (11.8-15.2) gm/dl Hct 34.2 L D (35.5-45.6) % MCV 97 H (84-94) fl RDW 15.5 H (13.2-15.2) % Plt Count 136 L (140-440) K/mm3 [place] % (Auto) 8.7 H (0.0-7.3) % Sodium 150 H D (137-145) mmol/L Chloride 116.0 H (98-107) mmol/L Carbon Dioxide 21 L (22-30) mmol/L BUN 46 H (9-20) mg/dL Glucose 177 H (75-100) mg/dL POC Glucose 137 H (70-105) mg/dL Urine WBC (Auto) (0.0-6.0) /HPF Urine Creatinine (0.1-20.0) mg/dL 08/21/21 Range/Units 09:25 RBC (3.65-5.03) M/mm3 Hgb (11.8-15.2) gm/dl Hct (35.5-45.6) % MCV (84-94) fl RDW (13.2-15.2) % Plt Count (140-440) K/mm3 [place] % (Auto) (0.0-7.3) % Sodium (137-145) mmol/L Chloride (98-107) mmol/L Carbon Dioxide (22-30) mmol/L BUN (9-20) mg/dL Glucose (75-100) mg/dL POC Glucose 136 H (70-105) mg/dL Urine WBC (Auto) (0.0-6.0) /HPF Urine Creatinine (0.1-20.0) mg/dL Medications & Allergies - Medications Allergies/Adverse Reactions: Allergies No Known Allergies Allergy (Verified 08/19/21 23:19) Active Medications: Generic Name Dose Route Start Last Admin Trade Name Freq PRN Reason Stop Dose Admin Acetaminophen 650 mg 08/20/21 02:19 Acetaminophen 325 Mg Tab PO Q4H PRN Pain MILD(1-3)/Fever >100.5/RIBERA Lipase/Protease/Amylase 1 each 08/20/21 11:34 Lipase 10,500/Protease 25,000/Amylase 43,750 (Units) Dr Reynolds FEEDTUBE PRN PRN For Clogged Feeding Tube Dextrose 0 ml 08/20/21 02:31 Dextrose 10% *Hypoglycemia IV DIRECT PRN Hypoglycemia Protocol Levofloxacin/Dextrose 750 mg in 150 mls @ 100 mls/hr 08/20/21 07:00 08/21/21 06:21 Levaquin 750mg/150ml IV 08/22/21 06:59 100 mls/hr Q24H TRACEE Administration Protocol Vancomycin HCl 1,500 mg/ 530 mls @ 333.333 mls/hr 08/21/21 10:00 08/21/21 10:41 Sodium Chloride IV 08/24/21 11:59 333.333 mls/hr Q24H TRACEE Administration Cefepime HCl 2 gm in 100 mls @ 200 mls/hr 08/20/21 20:00 08/21/21 08:37 Cefepime/Ns 2 Gm/100 Ml IV 08/24/21 20:29 200 mls/hr Q12H TRACEE Administration Protocol Lactated Ringer's 1,000 mls @ 100 mls/hr 08/21/21 08:30 Lactated Ringers IV DIRECT TRACEE Insulin Human Lispro 0 unit 08/20/21 07:30 08/21/21 10:41 Insulin Lispro 100 Unit/Ml SUB-Q Not Given ACHS TRACEE Protocol Magnesium Hydroxide 30 ml 08/20/21 02:19 Magnesium Hydroxide (Mom) Oral Liqd Udc PO Q4H PRN Constipation Morphine Sulfate 2 mg 08/20/21 02:19 Morphine 2 Mg/1 Ml Inj IV Q4H PRN Pain, Moderate (4-6) Morphine Sulfate 4 mg 08/20/21 02:19 Morphine 4 Mg/1 Ml Inj IV Q4H PRN Pain , Severe (7-10) Ondansetron HCl 4 mg 08/20/21 02:19 Ondansetron 4 Mg/2 Ml Inj IV Q8H PRN Nausea And Vomiting Simple Syrup 15 ml 08/20/21 11:34 Simple Syrup 15 Ml FEEDTUBE PRN PRN Hypoglycemia Simple Syrup 30 ml 08/20/21 11:34 Simple Syrup 15 Ml FEEDTUBE PRN PRN Hypoglycemia Sodium Bicarbonate 325 mg 08/20/21 11:34 Sodium Bicarbonate 325 Mg Tab FEEDTUBE PRN PRN For Clogged Feeding Tube Sodium Chloride 10 ml 08/20/21 10:00 08/21/21 10:42 Sodium Chloride 0.9% 10 Ml Flush Syringe IV 10 ml BID TRACEE Administration Sodium Chloride 10 ml 08/20/21 02:19 Sodium Chloride 0.9% 10 Ml Flush Syringe IV PRN PRN LINE FLUSH
--- NOTE | 2021-08-21 14:41 | Progress Note ---
Assessment and Plan Assessment and plan: #Bleeding from colostomy Consult placed to general surgery for evaluation and recommendations. We will monitor CBC. #Acute Kidney injury Consult placed to nephrology for evaluation. We will continue on IV fluid. #Volume depletion Patient placed on IV fluid. We will monitor chemistry. #History of traumatic brain injury #Tracheostomy dependence #History of pulmonary embolism #Pneumonia Patient placed on empiric IV antibiotics. We will also screen for COVID-19. History Interval history: Patient with anoxic brain injury. Open eyes to auditory stimuli. Appears to be comfortable at this time. Hospitalist Physical - Physical exam Narrative exam: GENERAL: Well-developed well-nourished. In no acute distress. NECK: Tracheostomy in place. CHEST/LUNGS: CTAB. HEART/CARDIOVASCULAR: RRR. No murmur, rubs or gallops appreciated. 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 G tube in place +BS. NT/ND. SKIN: No rashes noted. NEURO: Unable to assess. EXTREMITIES: No cyanosis, clubbing or edema. PSYCH: Cooperative. - Constitutional Vitals: Temp Pulse Resp BP Pulse Ox 98.2 F 79 18 103/72 99 08/21/21 04:46 08/21/21 04:46 08/21/21 04:46 08/21/21 04:46 08/21/21 10:00 General appearance: Present: no acute distress, other (unresponsive, with trach collar. Staring up at ceiling.) Results - Labs CBC & Chem 7: 08/21/21 08:51 08/21/21 08:51 Labs: Laboratory Last Values WBC 6.8 K/mm3 (4.5-11.0) 08/21/21 08:51 RBC 3.54 M/mm3 (3.65-5.03) L 08/21/21 08:51 Hgb 11.1 gm/dl (11.8-15.2) L 08/21/21 08:51 Hct 34.2 % (35.5-45.6) L D 08/21/21 08:51 MCV 97 fl (84-94) H 08/21/21 08:51 MCH 31 pg (28-32) 08/21/21 08:51 MCHC 33 % (32-34) 08/21/21 08:51 RDW 15.5 % (13.2-15.2) H 08/21/21 08:51 Plt Count 136 K/mm3 (140-440) L 08/21/21 08:51 Lymph % (Auto) 20.2 % (13.4-35.0) 08/21/21 08:51 [place] % (Auto) 8.7 % (0.0-7.3) H 08/21/21 08:51 Eos % (Auto) 3.6 % (0.0-4.3) 08/21/21 08:51 Baso % (Auto) 0.2 % (0.0-1.8) 08/21/21 08:51 Lymph # (Auto) 1.4 K/mm3 (1.2-5.4) 08/21/21 08:51 [place] # (Auto) 0.6 K/mm3 (0.0-0.8) 08/21/21 08:51 Eos # (Auto) 0.2 K/mm3 (0.0-0.4) 08/21/21 08:51 Baso # (Auto) 0.0 K/mm3 (0.0-0.1) 08/21/21 08:51 Seg Neutrophils % 67.3 % (40.0-70.0) 08/21/21 08:51 Seg Neutrophils # 4.6 K/mm3 (1.8-7.7) 08/21/21 08:51 PT 15.4 Sec. (12.2-14.9) H 08/20/21 00:30 INR 1.10 (0.87-1.13) 08/20/21 00:30 APTT 20.6 Sec. (24.2-36.6) L 08/20/21 00:30 D-Dimer 342.69 ng/mlDDU (0-234) H 08/20/21 07:19 Sodium 150 mmol/L (137-145) H D 08/21/21 08:51 Potassium 3.6 mmol/L (3.6-5.0) 08/21/21 08:51 Chloride 116.0 mmol/L (98-107) H 08/21/21 08:51 Carbon Dioxide 21 mmol/L (22-30) L 08/21/21 08:51 Anion Gap 17 mmol/L 08/21/21 08:51 BUN 46 mg/dL (9-20) H 08/21/21 08:51 Creatinine 1.2 mg/dL (0.8-1.3) 08/21/21 08:51 Estimated GFR > 60 ml/min 08/21/21 08:51 BUN/Creatinine Ratio 38 % 08/21/21 08:51 Glucose 177 mg/dL (75-100) H 08/21/21 08:51 POC Glucose 105 mg/dL (70-105) 08/21/21 12:29 Calcium 10.1 mg/dL (8.4-10.2) 08/21/21 08:51 Ferritin 373.6 ng/mL (30.0-300.0) H 08/20/21 07:19 Total Bilirubin 0.60 mg/dL (0.1-1.2) 08/20/21 00:30 AST 25 units/L (5-40) 08/20/21 00:30 ALT 13 units/L (7-56) 08/20/21 00:30 Alkaline Phosphatase 143 units/L (35-129) H 08/20/21 00:30 Lactate Dehydrogenase 161 units/L (91-180) 08/20/21 07:19 C-Reactive Protein 3.10 mg/dL (0.00-1.30) H 08/20/21 07:19 Total Protein 8.6 g/dL (6.3-8.2) H 08/20/21 00:30 Albumin 4.4 g/dL (3.9-5) 08/20/21 00:30 Albumin/Globulin Ratio 1.0 % 08/20/21 00:30 Procalcitonin 0.05 ng/mL (<0.15) 08/20/21 07:19 Urine Color Yellow (Yellow) 08/20/21 21:45 Urine Turbidity Turbid (Clear) 08/20/21 21:45 Urine pH 5.0 (5.0-7.0) 08/20/21 21:45 Ur Specific [place] 1.020 (1.003-1.030) 08/20/21 21:45 Urine Protein 30 mg/dl mg/dL (Negative) 08/20/21 21:45 Urine Glucose (UA) Neg mg/dL (Negative) 08/20/21 21:45 Urine Ketones Neg mg/dL (Negative) 08/20/21 21:45 Urine Blood Lg (Negative) 08/20/21 21:45 Urine Nitrite Neg (Negative) 08/20/21 21:45 Urine Bilirubin Neg (Negative) 08/20/21 21:45 Urine Urobilinogen < 2.0 mg/dL (<2.0) 08/20/21 21:45 Ur Leukocyte Esterase Lg (Negative) 08/20/21 21:45 Urine WBC (Auto) 146.0 /HPF (0.0-6.0) H 08/20/21 21:45 Urine RBC (Auto) > 182.0 /HPF (0.0-6.0) 08/20/21 21:45 U Epithel Cells (Auto) < 1.0 /HPF (0-13.0) 08/20/21 21:45 Urine Bacteria (Auto) 3+ /HPF (Negative) 08/20/21 21:45 Urine WBC Clumps 2+ /HPF 08/20/21 21:45 Uric Acid Crystals Few 08/20/21 21:45 Amorphous Crystals Few 08/20/21 21:45 Hyaline Casts 7 /LPF 08/20/21 21:45 Urine Mucus 2+ /HPF 08/20/21 21:45 Urine Creatinine 106.4 mg/dL (0.1-20.0) H 08/20/21 21:45 Urine Sodium 51 mmol/L 08/20/21 21:45 Coronavirus (PCR) Negative (Negative) 08/20/21 09:38 Blood Type O POSITIVE 08/20/21 00:30 Antibody Screen Negative 08/20/21 00:30 Martins/IV: Voiding Method Indwelling Catheter Active Medications - Current Medications Current Medications: Generic Name Dose Route Start Last Admin Trade Name Freq PRN Reason Stop Dose Admin Acetaminophen 650 mg 08/20/21 02:19 Acetaminophen 325 Mg Tab PO Q4H PRN Pain MILD(1-3)/Fever >100.5/RIBERA Lipase/Protease/Amylase 1 each 08/20/21 11:34 Lipase 10,500/Protease 25,000/Amylase 43,750 (Units) Cap FEEDTUBE PRN PRN For Clogged Feeding Tube Dextrose 0 ml 08/20/21 02:31 Dextrose 10% *Hypoglycemia IV DIRECT PRN Hypoglycemia Protocol Levofloxacin/Dextrose 750 mg in 150 mls @ 100 mls/hr 08/20/21 07:00 08/21/21 06:21 Levaquin 750mg/150ml IV 08/22/21 06:59 100 mls/hr Q24H TRACEE Administration Protocol Vancomycin HCl 1,500 mg/ 530 mls @ 333.333 mls/hr 08/21/21 10:00 08/21/21 10:41 Sodium Chloride IV 08/24/21 11:59 333.333 mls/hr Q24H TRACEE Administration Cefepime HCl 2 gm in 100 mls @ 200 mls/hr 08/20/21 20:00 08/21/21 08:37 Cefepime/Ns 2 Gm/100 Ml IV 08/24/21 20:29 200 mls/hr Q12H TRACEE Administration Protocol Lactated Ringer's 1,000 mls @ 100 mls/hr 08/21/21 08:30 Lactated Ringers IV DIRECT TRACEE Insulin Human Lispro 0 unit 08/20/21 07:30 08/21/21 10:41 Insulin Lispro 100 Unit/Ml SUB-Q Not Given ACHS [facility] Protocol Magnesium Hydroxide 30 ml 08/20/21 02:19 Magnesium Hydroxide (Mom) Oral Liqd Udc PO Q4H PRN Constipation Morphine Sulfate 2 mg 08/20/21 02:19 Morphine 2 Mg/1 Ml Inj IV Q4H PRN Pain, Moderate (4-6) Morphine Sulfate 4 mg 08/20/21 02:19 Morphine 4 Mg/1 Ml Inj IV Q4H PRN Pain , Severe (7-10) Ondansetron HCl 4 mg 08/20/21 02:19 Ondansetron 4 Mg/2 Ml Inj IV Q8H PRN Nausea And Vomiting Simple Syrup 15 ml 08/20/21 11:34 Simple Syrup 15 Ml FEEDTUBE PRN PRN Hypoglycemia Simple Syrup 30 ml 08/20/21 11:34 Simple Syrup 15 Ml FEEDTUBE PRN PRN Hypoglycemia Sodium Bicarbonate 325 mg 08/20/21 11:34 Sodium Bicarbonate 325 Mg Tab FEEDTUBE PRN PRN For Clogged Feeding Tube Sodium Chloride 10 ml 08/20/21 10:00 08/21/21 10:42 Sodium Chloride 0.9% 10 Ml Flush Syringe IV 10 ml BID TRACEE Administration Sodium Chloride 10 ml 08/20/21 02:19 Sodium Chloride 0.9% 10 Ml Flush Syringe IV PRN PRN LINE FLUSH Nutrition/Malnutrition Assess - Dietary Evaluation Nutrition/Malnutrition Findings: Nutrition Notes Start: 08/20/21 11:12 Freq: Status: Active Protocol: Document 08/20/21 11:12 QUEENIE (Rec: 08/20/21 11:33 QUEENIE [id number]) Nutrition Notes Need for Assessment generated from: MD Order,legal assistant Initial or Follow up Assessment Current Diagnosis Diabetes,Hypertension Other Pertinent Diagnosis Bleeding Colostomy, Pneumonia, Pancreatitis, Renal Insuficiency, ... Current Diet NPO. TF-Glucerna 1.2 [place] @ 60 ml/hr (since L 08/20). Labs/Tests 08/20: Na 158, Cl 116.7, BUN 59, Crea 1.5, Glu 123, Ca 10.7 . Pertinent Medications 08/20: Insulin, others nutritionally unremarkable. 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 Weight Status Overweight Subjective/Other Information RD consult for Skin risk assessment and write/manage TF . 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 Pt shows an unspecified area of concern for skin risk, according to Physical Assessment History notes. Percent of energy/protein needs met: Pt is permanently NPO. Prescribed TF-Glucerna 1.2 Hugo @ 60 ml/hr provides for energy/protein needs (1,724 Kcal/86 g) during LOS, 100% Kcal; 100% AA. Burn Absent Trauma Present GI Symptoms Other Food Allergy No Skin Integrity/Comment Unspecified area of concern. Current % PO Other #1 Nutrition Diagnosis Inadequate oral intake Etiology Pt quadriplegic and has PEG tube in place. As Evidenced by Signs and Symptoms Pt is permanently NPO. Is patient on ventilator? Yes Is Patient Ambulatory and/or Out of Bed No REE-([facility]-confined to bed) 2027.888 Kcal/Kg value to use for calculation 20 Approximate Energy Requirements Using 1724 kcal/Kg Calculation Used for Recommendations Kcal/kg Additional Notes Protein: 0.8-1 g/Kg; 69-86 g/ day. Fluids: 1 ml/Kcal, or as per MD. Nutrition Intervention Nutrition Support: Start Glucerna 1.2 Hugo @ 60 ml /hr. Flush: 100 ml water Q 4 hr, or as per MD. Kcal 1,724 Protein (gm) 86 Carbohydrates (gm) 165 Fat (gm) 86 Fluid (mL) 1,157 Fiber (gm) 23 % RDI: 100% Kcal; 100% AA. Goal #1 Provide at least 75% of energy /protein needs through Enteral Feeding during LOS. Goal #2 Maintain body weight within +/ -3% of admission body weight during LOS. Follow-Up By: 08/22/21 Additional Comments When pertinent, monitor TF tolerance and BM.
[2021-08-21] MEDS: LACTATED RINGERS 1,000 ML IV SCH (19:20)
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
[2021-08-22 05:09] LABS: Basophils % (Auto) 0.6 % (0.0-1.8); Eosinophils # (Auto) 0.2 K/mm3 (0.0-0.4); Eosinophils % (Auto) 4.1 % (0.0-4.3); Hematocrit 31.9 % (35.5-45.6); Hemoglobin 10.2 gm/dl (11.8-15.2); Lymphocytes # (Auto) 1.4 K/mm3 (1.2-5.4); Lymphocytes % (Auto) 27.1 % (13.4-35.0); Mean Corpuscular HGB Conc 32 % (32-34); Mean Corpuscular Volume 97 fl (84-94); Monocytes # (Auto) 0.3 K/mm3 (0.0-0.8); Monocytes % (Auto) 6.8 % (0.0-7.3); Platelet Count 117 K/mm3 (140-440); Red Blood Count 3.29 M/mm3 (3.65-5.03)
[2021-08-22 05:27] LABS: BUN/Creatinine Ratio 33; Blood Urea Nitrogen 36 mg/dL (9-20); Calcium 9.8 mg/dL (8.4-10.2); Hemolysis Index 5
[2021-08-22 05:28] LABS: Iron 33 ug/dL (49-181); Total Iron Binding Capacity 142 mcg/dL (250-450)
[2021-08-22] MEDS: LACTATED RINGERS 1,000 ML IV SCH ×2 (06:12→21:30)
[2021-08-22] MEDS ORDERED: FREE WATER PO SCH (09:00)
[2021-08-22] MEDS: CEFEPIME/NS 2 GM/100 ML 2 GM/100 ML BAG IV SCH (09:26)
[2021-08-22] MEDS: INSULIN LISPRO 100 UNIT/ML SUB-Q SCH ×4 (09:28→21:29)
[2021-08-22] MEDS: VANCOMYCIN 1,500 MG in SODIUM CHLORIDE 0.9% 500 ML 500 ML IV SCH (09:59)
--- NOTE | 2021-08-22 12:04 | Progress Note ---
Assessment and Plan Impression: * Acute kidney injury secondary to dehydration * Hypernatremia * Pancreatic mass * Bilateral PNA --CT abd/pelvis: Airspace consolidation of the right lung base and mild groundglass opacities in the left lung base --COVID 19 PCR negative (Aug 19) * Pancreaticocutaneous fistula * Nephrolithiasis, nonobstructive * Quadraplegia * Chronic respiratory failure s/p trach Plan: * Sodium higher 158->150->151 * Creatinine improved 1.5->1.1 * Continue free H2O w/ TF - 200ml [id number] * Recommend D5W rather than LR as renal function improved, defer to ordering provider * Urine studies reviewed * Abd/Pelvis CT reviewed - no hydro, bilateral stones which are nonobstructive * Abx per primary team - Vanco/Cefepime/Levaquin * Surgery recommendations noted * GI consultation noted * Avoid potential nephrotoxins * Dose medications for renal function - monitor Vanco levels closely * AM labs Subjective Date of service: 08/22/21 Interval history: Resting in bed, no major clinical changes noted. Running on LR this AM, tube feeds. Chart, vitals, labs reviewed Objective - Exam Narrative Exam: General appearance: well-developed, well-nourished EENT: ATNC Neck: Present: Other (trach) Respiratory: Decreased Breath Sounds Heart: regular, S1S2 Gastrointestinal: Present: other (PEG tube) Integumentary: no rash, warm and dry Musculoskeletal: Present: other (no edema) - Vital Signs Vital signs: Vital Signs - 12hr 08/22/21 08/22/21 08/22/21 01:28 05:14 08:00 Temperature 98.4 F Pulse Rate 76 Respiratory 18 Rate Blood Pressure 89/52 Blood Pressure [Left] O2 Sat by Pulse 97 Oximetry O2 Sat by Pulse 97 98 Oximetry [ Assessment] 08/22/21 08/22/21 09:44 11:45 Temperature 98.4 F Pulse Rate 60 Respiratory 18 Rate Blood Pressure Blood Pressure 108/64 [Left] O2 Sat by Pulse 98 98 Oximetry O2 Sat by Pulse Oximetry [ Assessment] - Lab 08/22/21 04:35 08/22/21 04:35 Most recent lab results Calcium 9.8 mg/dL (8.4-10.2) 08/22/21 04:35 Urine Creatinine 106.4 mg/dL (0.1-20.0) H 08/20/21 21:45 Urine Sodium 51 mmol/L 08/20/21 21:45 Medications & Allergies - Medications Allergies/Adverse Reactions: Allergies No Known Allergies Allergy (Verified 08/19/21 23:19) Active Medications: Generic Name Dose Route Start Last Admin Trade Name Freq PRN Reason Stop Dose Admin Acetaminophen 650 mg 08/20/21 02:19 Acetaminophen 325 Mg Tab PO Q4H PRN Pain MILD(1-3)/Fever >100.5/RIBERA Lipase/Protease/Amylase 1 each 08/20/21 11:34 Lipase 10,500/Protease 25,000/Amylase 43,750 (Units) Dr Reynolds FEEDTUBE PRN PRN For Clogged Feeding Tube Dextrose 0 ml 08/20/21 02:31 Dextrose 10% *Hypoglycemia IV DIRECT PRN Hypoglycemia Protocol Vancomycin HCl 1,500 mg/ 530 mls @ 333.333 mls/hr 08/21/21 10:00 08/22/21 09:59 Sodium Chloride IV 08/24/21 11:59 333.333 mls/hr Q24H TRACEE Administration Cefepime HCl 2 gm in 100 mls @ 200 mls/hr 08/20/21 20:00 08/22/21 09:26 Cefepime/Ns 2 Gm/100 Ml IV 08/24/21 20:29 200 mls/hr Q12H TRACEE Administration Protocol Lactated Ringer's 1,000 mls @ 100 mls/hr 08/21/21 08:30 08/22/21 06:12 Lactated Ringers IV 100 mls/hr DIRECT TRACEE Administration Insulin Human Lispro 0 unit 08/20/21 07:30 08/22/21 11:49 Insulin Lispro 100 Unit/Ml SUB-Q Not Given ACHS TRACEE Protocol Magnesium Hydroxide 30 ml 08/20/21 02:19 Magnesium Hydroxide (Mom) Oral Liqd Udc PO Q4H PRN Constipation Morphine Sulfate 2 mg 08/20/21 02:19 Morphine 2 Mg/1 Ml Inj IV Q4H PRN Pain, Moderate (4-6) Morphine Sulfate 4 mg 08/20/21 02:19 Morphine 4 Mg/1 Ml Inj IV Q4H PRN Pain , Severe (7-10) Ondansetron HCl 4 mg 08/20/21 02:19 Ondansetron 4 Mg/2 Ml Inj IV Q8H PRN Nausea And Vomiting Simple Syrup 15 ml 08/20/21 11:34 Simple Syrup 15 Ml FEEDTUBE PRN PRN Hypoglycemia Simple Syrup 30 ml 08/20/21 11:34 Simple Syrup 15 Ml FEEDTUBE PRN PRN Hypoglycemia Sodium Bicarbonate 325 mg 08/20/21 11:34 Sodium Bicarbonate 325 Mg Tab FEEDTUBE PRN PRN For Clogged Feeding Tube Sodium Chloride 10 ml 08/20/21 10:00 08/22/21 10:06 Sodium Chloride 0.9% 10 Ml Flush Syringe IV 10 ml BID TRACEE Administration Sodium Chloride 10 ml 08/20/21 02:19 Sodium Chloride 0.9% 10 Ml Flush Syringe IV PRN PRN LINE FLUSH
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
--- NOTE | 2021-08-22 14:13 | Progress Note ---
Assessment and Plan Assessment and plan: #Bleeding from colostomyresolved #Iron deficiency anemia General surgery consulted; appreciate recs Gastroenterology consulted; appreciate recs Bleeding has resolved with hemoglobin of 10.2 CT abdomen/pelvis with contrast recommended to evaluate for possible splenic artery pseudoaneurysm; however, patient's daughter refuses imaging. Heme/oncology consulted; appreciate recs. Initiating IV Ferrlecit per heme oncology. Patient will follow with [facility] upon discharge as patient already has history with [facility]. #Acute Kidney injury-resolved #Hyponatremia #Volume depletion Creatinine 1.1, sodium 151 Etiology is likely secondary to vasomotor nephropathy Nephrology consulted; appreciate recs Continue IV fluid resuscitation with free water flushes. Continue to monitor with daily BMP. #History of traumatic brain injury #Tracheostomy dependence -Baseline continue to monitor. #History of pulmonary embolism Unsure as to name of previous anticoagulant. Daughter could not remember name. Since patient is not currently bleeding, can consider restarting anticoagulation prior to discharge. Will likely initiate apixaban 2.5 mg every 12 hours. #Presumed pneumonia Patient placed on empiric cefepime and vancomycin. Discontinuing antibiotics as patient is hemodynamically stable without leukocytosis. Coronavirus PCR negative #Advanced care planning -Disease education conducted, care plan discussed, diagnoses discussed, prognosis discussed, and patient acknowledges understanding with care plan -Time: +30 min Disposition Plan: Continue medical management Total Time Spent with Patient (Minutes): 45 minutes History Interval history: No acute events overnight. Hospitalist Physical - Constitutional Vitals: Temp Pulse Resp BP Pulse Ox 98.4 F 60 18 108/64 98 08/22/21 11:45 08/22/21 11:45 08/22/21 11:45 08/22/21 11:45 08/22/21 11:45 General appearance: Present: no acute distress, other (unresponsive, with trach collar. Staring up at ceiling.) - EENT Eyes: Present: PERRL, EOM intact ENT: hearing intact, clear oral mucosa - Neck Neck: Present: supple, normal ROM, other (Trach collar) - Respiratory Respiratory effort: normal Respiratory: bilateral: diminished - Cardiovascular Rhythm: regular Heart Sounds: Present: S1 & S2 - Extremities Extremities: no ischemia, pulses intact, pulses symmetrical, No edema, normal temperature, normal color Peripheral Pulses: within normal limits - Abdominal General gastrointestinal: soft, non-tender, non-distended, normal bowel sounds, other (PEG tube in place) - Integumentary Integumentary: Present: clear, warm, dry - Psychiatric Psychiatric: other (Unresponsive; unable to assess) - Neurologic Neurologic: other (Unresponsive; unable to assess) - Allied Health Allied health notes reviewed: nursing Results - Labs CBC & Chem 7: 08/22/21 04:35 08/22/21 04:35 Labs: Laboratory Last Values WBC 5.1 K/mm3 (4.5-11.0) 08/22/21 04:35 RBC 3.29 M/mm3 (3.65-5.03) L 08/22/21 04:35 Hgb 10.2 gm/dl (11.8-15.2) L 08/22/21 04:35 Hct 31.9 % (35.5-45.6) L 08/22/21 04:35 MCV 97 fl (84-94) H 08/22/21 04:35 MCH 31 pg (28-32) 08/22/21 04:35 MCHC 32 % (32-34) 08/22/21 04:35 RDW 15.0 % (13.2-15.2) 08/22/21 04:35 Plt Count 117 K/mm3 (140-440) L 08/22/21 04:35 Lymph % (Auto) 27.1 % (13.4-35.0) 08/22/21 04:35 Rowan % (Auto) 6.8 % (0.0-7.3) 08/22/21 04:35 Eos % (Auto) 4.1 % (0.0-4.3) 08/22/21 04:35 Baso % (Auto) 0.6 % (0.0-1.8) 08/22/21 04:35 Lymph # (Auto) 1.4 K/mm3 (1.2-5.4) 08/22/21 04:35 Rowan # (Auto) 0.3 K/mm3 (0.0-0.8) 08/22/21 04:35 Eos # (Auto) 0.2 K/mm3 (0.0-0.4) 08/22/21 04:35 Baso # (Auto) 0.0 K/mm3 (0.0-0.1) 08/22/21 04:35 Seg Neutrophils % 61.4 % (40.0-70.0) 08/22/21 04:35 Seg Neutrophils # 3.1 K/mm3 (1.8-7.7) 08/22/21 04:35 Percent Retic 0.51 % (0.78-2.58) L 08/22/21 04:35 PT 15.4 Sec. (12.2-14.9) H 08/20/21 00:30 INR 1.10 (0.87-1.13) 08/20/21 00:30 APTT 20.6 Sec. (24.2-36.6) L 08/20/21 00:30 D-Dimer 342.69 ng/mlDDU (0-234) H 08/20/21 07:19 Sodium 151 mmol/L (137-145) H 08/22/21 04:35 Potassium 3.8 mmol/L (3.6-5.0) 08/22/21 04:35 Chloride 117.6 mmol/L (98-107) H 08/22/21 04:35 Carbon Dioxide 22 mmol/L (22-30) 08/22/21 04:35 Anion Gap 15 mmol/L 08/22/21 04:35 BUN 36 mg/dL (9-20) H 08/22/21 04:35 Creatinine 1.1 mg/dL (0.8-1.3) 08/22/21 04:35 Estimated GFR > 60 ml/min 08/22/21 04:35 BUN/Creatinine Ratio 33 % 08/22/21 04:35 Glucose 144 mg/dL (75-100) H 08/22/21 04:35 POC Glucose 128 mg/dL (70-105) H 08/22/21 11:21 Calcium 9.8 mg/dL (8.4-10.2) 08/22/21 04:35 Iron 33 ug/dL (49-181) L 08/22/21 04:35 TIBC 142 mcg/dL (250-450) L 08/22/21 04:35 Ferritin 373.6 ng/mL (30.0-300.0) H 08/20/21 07:19 Total Bilirubin 0.60 mg/dL (0.1-1.2) 08/20/21 00:30 AST 25 units/L (5-40) 08/20/21 00:30 ALT 13 units/L (7-56) 08/20/21 00:30 Alkaline Phosphatase 143 units/L (35-129) H 08/20/21 00:30 Lactate Dehydrogenase 161 units/L (91-180) 08/20/21 07:19 C-Reactive Protein 3.10 mg/dL (0.00-1.30) H 08/20/21 07:19 Total Protein 8.6 g/dL (6.3-8.2) H 08/20/21 00:30 Albumin 4.4 g/dL (3.9-5) 08/20/21 00:30 Albumin/Globulin Ratio 1.0 % 08/20/21 00:30 Procalcitonin 0.05 ng/mL (<0.15) 08/20/21 07:19 Urine Color Yellow (Yellow) 08/20/21 21:45 Urine Turbidity Turbid (Clear) 08/20/21 21:45 Urine pH 5.0 (5.0-7.0) 08/20/21 21:45 Ur Specific [place] 1.020 (1.003-1.030) 08/20/21 21:45 Urine Protein 30 mg/dl mg/dL (Negative) 08/20/21 21:45 Urine Glucose (UA) Neg mg/dL (Negative) 08/20/21 21:45 Urine Ketones Neg mg/dL (Negative) 08/20/21 21:45 Urine Blood Lg (Negative) 08/20/21 21:45 Urine Nitrite Neg (Negative) 08/20/21 21:45 Urine Bilirubin Neg (Negative) 08/20/21 21:45 Urine Urobilinogen < 2.0 mg/dL (<2.0) 08/20/21 21:45 Ur Leukocyte Esterase Lg (Negative) 08/20/21 21:45 Urine WBC (Auto) 146.0 /HPF (0.0-6.0) H 08/20/21 21:45 Urine RBC (Auto) > 182.0 /HPF (0.0-6.0) 08/20/21 21:45 U Epithel Cells (Auto) < 1.0 /HPF (0-13.0) 08/20/21 21:45 Urine Bacteria (Auto) 3+ /HPF (Negative) 08/20/21 21:45 Urine WBC Clumps 2+ /HPF 08/20/21 21:45 Uric Acid Crystals Few 08/20/21 21:45 Amorphous Crystals Few 08/20/21 21:45 Hyaline Casts 7 /LPF 08/20/21 21:45 Urine Mucus 2+ /HPF 08/20/21 21:45 Urine Creatinine 106.4 mg/dL (0.1-20.0) H 08/20/21 21:45 Urine Sodium 51 mmol/L 08/20/21 21:45 Coronavirus (PCR) Negative (Negative) 08/20/21 09:38 Blood Type O POSITIVE 08/20/21 00:30 Antibody Screen Negative 08/20/21 00:30 Martins/IV: Voiding Method Indwelling Catheter Active Medications - Current Medications Current Medications: Generic Name Dose Route Start Last Admin Trade Name Freq PRN Reason Stop Dose Admin Acetaminophen 650 mg 08/20/21 02:19 Acetaminophen 325 Mg Tab PO Q4H PRN Pain MILD(1-3)/Fever >100.5/RIBERA Lipase/Protease/Amylase 1 each 08/20/21 11:34 Lipase 10,500/Protease 25,000/Amylase 43,750 (Units) Dr Reynolds FEEDTUBE PRN PRN For Clogged Feeding Tube Dextrose 0 ml 08/20/21 02:31 Dextrose 10% *Hypoglycemia IV DIRECT PRN Hypoglycemia Protocol Vancomycin HCl 1,500 mg/ 530 mls @ 333.333 mls/hr 08/21/21 10:00 08/22/21 09:59 Sodium Chloride IV 08/24/21 11:59 333.333 mls/hr Q24H TRACEE Administration Cefepime HCl 2 gm in 100 mls @ 200 mls/hr 08/20/21 20:00 08/22/21 09:26 Cefepime/Ns 2 Gm/100 Ml IV 08/24/21 20:29 200 mls/hr Q12H TRACEE Administration Protocol Lactated Ringer's 1,000 mls @ 100 mls/hr 08/21/21 08:30 08/22/21 06:12 Lactated Ringers IV 100 mls/hr DIRECT TRACEE Administration Ferric Sodium Gluconate 110 mls @ 100 mls/hr 08/22/21 14:00 Complex 125 mg/ Sodium IV 08/25/21 13:59 Chloride DAILY TRACEE Insulin Human Lispro 0 unit 08/20/21 07:30 08/22/21 11:49 Insulin Lispro 100 Unit/Ml SUB-Q Not Given ACHS [facility] Protocol Magnesium Hydroxide 30 ml 08/20/21 02:19 Magnesium Hydroxide (Mom) Oral Liqd Udc PO Q4H PRN Constipation Morphine Sulfate 2 mg 08/20/21 02:19 Morphine 2 Mg/1 Ml Inj IV Q4H PRN Pain, Moderate (4-6) Morphine Sulfate 4 mg 08/20/21 02:19 Morphine 4 Mg/1 Ml Inj IV Q4H PRN Pain , Severe (7-10) Ondansetron HCl 4 mg 08/20/21 02:19 Ondansetron 4 Mg/2 Ml Inj IV Q8H PRN Nausea And Vomiting Simple Syrup 15 ml 08/20/21 11:34 Simple Syrup 15 Ml FEEDTUBE PRN PRN Hypoglycemia Simple Syrup 30 ml 08/20/21 11:34 Simple Syrup 15 Ml FEEDTUBE PRN PRN Hypoglycemia Sodium Bicarbonate 325 mg 08/20/21 11:34 Sodium Bicarbonate 325 Mg Tab FEEDTUBE PRN PRN For Clogged Feeding Tube Sodium Chloride 10 ml 08/20/21 10:00 08/22/21 10:06 Sodium Chloride 0.9% 10 Ml Flush Syringe IV 10 ml BID TRACEE Administration Sodium Chloride 10 ml 08/20/21 02:19 Sodium Chloride 0.9% 10 Ml Flush Syringe IV PRN PRN LINE FLUSH Nutrition/Malnutrition Assess - Dietary Evaluation Nutrition/Malnutrition Findings: Nutrition Notes Start: 08/20/21 11:12 Freq: Status: Active Protocol: Document 08/20/21 11:12 QUEENIE (Rec: 08/20/21 11:33 QUEENIE [id number]) Nutrition Notes Need for Assessment generated from: MD Order,land planner Initial or Follow up Assessment Current Diagnosis Diabetes,Hypertension Other Pertinent Diagnosis Bleeding Colostomy, Pneumonia, Pancreatitis, Renal Insuficiency, ... Current Diet NPO. TF-Glucerna 1.2 Hugo @ 60 ml/hr (since L 08/20). Labs/Tests 08/20: Na 158, Cl 116.7, BUN 59, Crea 1.5, Glu 123, Ca 10.7 . Pertinent Medications 08/20: Insulin, others nutritionally unremarkable. Height 5 ft 9 in Weight 86.183 kg [place] Body Weight (kg) 72.72 BMI 28.0 Weight change and time frame Pt has not loss body weight REJOGGER. Weight Status Overweight Subjective/Other Information RD consult for Skin risk assessment and write/manage TF . Pt is quadriplegic from Hx of traumatic brain injury, and has Trach collar, Colostomy bag and PEG tube in place REJOGGER. Pt shows an unspecified area of concern for skin risk, according to Physical Assessment History notes. Percent of energy/protein needs met: Pt is permanently NPO. Prescribed TF-Glucerna 1.2 Hugo @ 60 ml/hr provides for energy/protein needs (1,724 Kcal/86 g) during LOS, 100% Kcal; 100% AA. Burn Absent Trauma Present GI Symptoms Other Food Allergy No Skin Integrity/Comment Unspecified area of concern. Current % PO Other #1 Nutrition Diagnosis Inadequate oral intake Etiology Pt quadriplegic and has PEG tube in place. As Evidenced by Signs and Symptoms Pt is permanently NPO. Is patient on ventilator? Yes Is Patient Ambulatory and/or Out of Bed No REE-([facility]-confined to bed) 2027.888 Kcal/Kg value to use for calculation 20 Approximate Energy Requirements Using 1724 kcal/Kg Calculation Used for Recommendations Kcal/kg Additional Notes Protein: 0.8-1 g/Kg; 69-86 g/ day. Fluids: 1 ml/Kcal, or as per MD. Nutrition Intervention Nutrition Support: Start Glucerna 1.2 Hugo @ 60 ml /hr. Flush: 100 ml water Q 4 hr, or as per MD. Kcal 1,724 Protein (gm) 86 Carbohydrates (gm) 165 Fat (gm) 86 Fluid (mL) 1,157 Fiber (gm) 23 % RDI: 100% Kcal; 100% AA. Goal #1 Provide at least 75% of energy /protein needs through Enteral Feeding during LOS. Goal #2 Maintain body weight within +/ -3% of admission body weight during LOS. Follow-Up By: 08/22/21 Additional Comments When pertinent, monitor TF tolerance and BM.
[2021-08-22] MEDS: SODIUM FERRIC GLUCON/SUCRO 125 MG in SODIUM CHLORIDE 0.9% 100 ML IV SCH (15:00)
[2021-08-22] MEDS: FREE WATER PO SCH ×3 (15:01→21:31)
[2021-08-22 16:14] LABS: Hematocrit 30.6 % (35.5-45.6); Hemoglobin 10.2 gm/dl (11.8-15.2); Mean Corpuscular HGB Conc 33 % (32-34); Mean Corpuscular Volume 98 fl (84-94); Platelet Count 106 K/mm3 (140-440); Red Blood Count 3.14 M/mm3 (3.65-5.03); Red Cell Distribution Width 15.2 % (13.2-15.2)
[2021-08-22 16:17] LABS: INR 1.04 (0.87-1.13); Partial Thromboplastin Time 31.1 Sec. (24.2-36.6)
[2021-08-22] MEDS: APIXABAN 5 MG TAB PO SCH (21:30)
[2021-08-23] MEDS: FREE WATER PO SCH ×7 (00:26→23:18)
[2021-08-23] MEDS: LACTATED RINGERS 1,000 ML IV SCH (06:45)
[2021-08-23 08:21] LABS: Basophils % (Auto) 0.5 % (0.0-1.8); Eosinophils # (Auto) 0.2 K/mm3 (0.0-0.4); Eosinophils % (Auto) 3.3 % (0.0-4.3); Hematocrit 28.9 % (35.5-45.6); Hemoglobin 9.3 gm/dl (11.8-15.2); Lymphocytes # (Auto) 1.2 K/mm3 (1.2-5.4); Lymphocytes % (Auto) 23.1 % (13.4-35.0); Mean Corpuscular HGB Conc 32 % (32-34); Mean Corpuscular Volume 97 fl (84-94); Monocytes # (Auto) 0.4 K/mm3 (0.0-0.8); Monocytes % (Auto) 7.1 % (0.0-7.3); Platelet Count 104 K/mm3 (140-440); Red Blood Count 2.99 M/mm3 (3.65-5.03); Red Cell Distribution Width 15.1 % (13.2-15.2)
[2021-08-23 08:31] LABS: BUN/Creatinine Ratio 31; Blood Urea Nitrogen 25 mg/dL (9-20); Calcium 9.5 mg/dL (8.4-10.2); Hemolysis Index 4
[2021-08-23] MEDS: INSULIN LISPRO 100 UNIT/ML SUB-Q SCH ×4 (09:05→21:12)
--- NOTE | 2021-08-23 09:27 | Progress Note ---
Assessment and Plan Impression: * Acute kidney injury secondary to dehydration * Hypernatremia * Pancreatic mass * Bilateral PNA --CT abd/pelvis: Airspace consolidation of the right lung base and mild groundglass opacities in the left lung base --COVID 19 PCR negative (Aug 19) * Pancreaticocutaneous fistula * Nephrolithiasis, nonobstructive * Quadraplegia * Chronic respiratory failure s/p trach Plan: * Sodium improved to 146 * Creatinine improved 1.5->1.1->0.8 * Continue free H2O w/ TF - 200ml [id number] * On LR currently * Replete K prn- K 3.3 this AM * Urine studies reviewed * Abd/Pelvis CT reviewed - no hydro, bilateral stones which are nonobstructive * Abx per primary team - Vanco/Cefepime/Levaquin * Surgery recommendations noted * GI consultation noted * Avoid potential nephrotoxins * Dose medications for renal function - monitor Vanco levels closely * AM labs Subjective Date of service: 08/23/21 Interval history: Resting in bed, no major clinical changes noted. Running on LR this AM, tube feeds. Chart, vitals, labs reviewed Objective - Exam Narrative Exam: General appearance: well-developed, well-nourished EENT: ATNC Neck: Present: Other (trach) Respiratory: Decreased Breath Sounds Heart: regular, S1S2 Gastrointestinal: Present: other (PEG tube) Integumentary: no rash, warm and dry Musculoskeletal: Present: other (no edema) - Vital Signs Vital signs: Vital Signs - 12hr 08/22/21 08/23/21 22:00 02:10 O2 Sat by Pulse 99 Oximetry O2 Sat by Pulse 97 Oximetry [ Assessment] - Lab 08/23/21 08:00 08/23/21 08:00 Most recent lab results Calcium 9.5 mg/dL (8.4-10.2) 08/23/21 08:00 Urine Creatinine 106.4 mg/dL (0.1-20.0) H 08/20/21 21:45 Urine Sodium 51 mmol/L 08/20/21 21:45 Medications & Allergies - Medications Allergies/Adverse Reactions: Allergies No Known Allergies Allergy (Verified 08/19/21 23:19) Active Medications: Generic Name Dose Route Start Last Admin Trade Name Freq PRN Reason Stop Dose Admin Acetaminophen 650 mg 08/20/21 02:19 Acetaminophen 325 Mg Tab PO Q4H PRN Pain MILD(1-3)/Fever >100.5/RIBERA Lipase/Protease/Amylase 1 each 08/20/21 11:34 Lipase 10,500/Protease 25,000/Amylase 43,750 (Units) Dr Reynolds FEEDTUBE PRN PRN For Clogged Feeding Tube Apixaban 5 mg 08/22/21 22:00 08/22/21 21:30 Apixaban 5 Mg Tab PO 5 mg Q12HR TRACEE Administration Protocol Dextrose 0 ml 08/20/21 02:31 Dextrose 10% *Hypoglycemia IV DIRECT PRN Hypoglycemia Protocol Lactated Ringer's 1,000 mls @ 100 mls/hr 08/21/21 08:30 08/23/21 06:45 Lactated Ringers IV 100 mls/hr DIRECT TRACEE Administration Ferric Sodium Gluconate 110 mls @ 100 mls/hr 08/22/21 14:00 08/22/21 15:00 Complex 125 mg/ Sodium IV 08/25/21 13:59 100 mls/hr Chloride DAILY TRACEE Administration Potassium Chloride 10 meq in 100 mls @ 100 mls/hr 08/23/21 10:00 Kcl 10meq/100ml IV 08/23/21 13:59 Q1H TRACEE Insulin Human Lispro 0 unit 08/20/21 07:30 08/23/21 09:05 Insulin Lispro 100 Unit/Ml SUB-Q Not Given ACHS [facility] Protocol Magnesium Hydroxide 30 ml 08/20/21 02:19 Magnesium Hydroxide (Mom) Oral Liqd Udc PO Q4H PRN Constipation Morphine Sulfate 2 mg 08/20/21 02:19 Morphine 2 Mg/1 Ml Inj IV Q4H PRN Pain, Moderate (4-6) Morphine Sulfate 4 mg 08/20/21 02:19 Morphine 4 Mg/1 Ml Inj IV Q4H PRN Pain , Severe (7-10) Ondansetron HCl 4 mg 08/20/21 02:19 Ondansetron 4 Mg/2 Ml Inj IV Q8H PRN Nausea And Vomiting Simple Syrup 15 ml 08/20/21 11:34 Simple Syrup 15 Ml FEEDTUBE PRN PRN Hypoglycemia Simple Syrup 30 ml 08/20/21 11:34 Simple Syrup 15 Ml FEEDTUBE PRN PRN Hypoglycemia Sodium Bicarbonate 325 mg 08/20/21 11:34 Sodium Bicarbonate 325 Mg Tab FEEDTUBE PRN PRN For Clogged Feeding Tube Sodium Chloride 10 ml 08/20/21 10:00 08/22/21 21:30 Sodium Chloride 0.9% 10 Ml Flush Syringe IV 10 ml BID TRACEE Administration Sodium Chloride 10 ml 08/20/21 02:19 Sodium Chloride 0.9% 10 Ml Flush Syringe IV PRN PRN LINE FLUSH
[2021-08-23] MEDS: APIXABAN 5 MG TAB PO SCH (09:42)
[2021-08-23] MEDS: SODIUM FERRIC GLUCON/SUCRO 125 MG in SODIUM CHLORIDE 0.9% 100 ML IV SCH (09:42)
[2021-08-23] MEDS: POTASSIUM CHLORIDE 10 MEQ 10 MEQ/100 ML BAG IV SCH ×4 (12:36→16:54)
--- NOTE | 2021-08-23 13:27 | Cat Scan Report ---
CTA ABDOMEN AND PELVIS WITH IV CONTRAST INDICATION: Assess for possible GI bleed OMNI 350 100 ML. TECHNIQUE: Axial CT images were obtained through the abdomen and pelvis before and after after injection of IV c ontrast. 3 plane MIP reconstructions were produced. All CT scans at this location are performed using CT dose reduction for ALARA by means of automated exposure control. COMPARISON: CT abdomen and pelvis without contrast from 08/20/2021. FINDINGS: VASCULAR FINDINGS: AORTA: No significant abnormality. CELIAC TRUNK: No significant abnormality. SUPERIOR MESENTERIC ARTERY: Mild nonobstructive atherosclerosis is seen at the vessel origin without other significant abnormalities. RENAL ARTERIES: No significant abnormality. INFERIOR MESENTERIC ARTERY: No significant abnormality. RIGHT ILIAC ARTERIES: No significant abnormality. LEFT ILIAC ARTERIES: No significant abnormality. FEMORAL ARTERIES: No significant abnormality. NONTARGET STRUCTURES: ABDOMEN: No active contrast extravasation is seen along the GI tract to suggest an active GI bleed. N o significant interval changes are seen compared to the recent noncontrast CT. PELVIS: No new significant abnormality. SKELETAL: No new significant abnormality. ADDITIONAL FINDINGS: None. IMPRESSION: 1. No evidence of an active GI bleed by CT angiography. 2. No other acute vascular abnormality in the abdomen or pelvis. 3. No significant interval changes from the prior CT dated 08/20/2021. Signer Name: Amarjit Dean MD Signed: 08/23/2021 1:08 PM Workstation Name: [email or web address]
--- NOTE | 2021-08-23 14:59 | Progress Note ---
Assessment and Plan Assessment and plan: #Bleeding from colostomyresolved #Iron deficiency anemia General surgery consulted; appreciate recs Gastroenterology consulted; appreciate recs Bleeding has resolved with hemoglobin of 10.2 CTA abdomen/pelvis with contrast performed on 08/23/2021 to evaluate for possible splenic artery pseudoaneurysm or possible bleeding. Found to be negative for acute bleeding Heme/oncology consulted; appreciate recs. Initiating IV Ferrlecit per heme oncology. Patient will follow with [facility] upon discharge as patient already has history with [facility]. #Acute Kidney injury-resolved #Hypernatremiaresolved #Volume depletion Creatinine 1.1, sodium 151-->146 Etiology is likely secondary to vasomotor nephropathy Nephrology consulted; appreciate recs Continue IV fluid resuscitation with free water flushes. Continue to monitor with daily BMP. #Hypokalemia Potassium 3.3 Repleted. Continue to monitor with repeat BMP in the a.m. #History of traumatic brain injury #Tracheostomy dependence -Baseline continue to monitor. #History of pulmonary embolism Unsure as to name of previous anticoagulant. Daughter could not remember name. Since patient is not currently bleeding, can consider restarting anticoagulation prior to discharge. Will likely initiate apixaban 2.5 mg every 12 hours. #Presumed pneumonia Patient placed on empiric cefepime and vancomycin. Discontinuing antibiotics as patient is hemodynamically stable without leukocytosis. Coronavirus PCR negative #Advanced care planning -Disease education conducted, care plan discussed, diagnoses discussed, prognosis discussed, and patient acknowledges understanding with care plan -Time: +30 min #Discharge planning - Patient is pending 24 hours on apixaban without bleeding and stable hemoglobin - Case management has been made aware. - Discharge is tentatively tomorrow Disposition Plan: Continue medical management Total Time Spent with Patient (Minutes): 35 minutes History Interval history: No acute events overnight. Hospitalist Physical - Constitutional Vitals: Temp Pulse Resp BP Pulse Ox 98.3 F 62 18 98/57 99 08/23/21 12:33 08/23/21 12:33 08/23/21 12:33 08/23/21 12:33 08/23/21 12:33 General appearance: Present: no acute distress, other (unresponsive, with trach collar. Staring up at ceiling.) - EENT Eyes: Present: PERRL, EOM intact ENT: hearing intact, clear oral mucosa - Neck Neck: Present: supple, other (Trach collar in place) - Respiratory Respiratory effort: normal Respiratory: bilateral: diminished - Cardiovascular Rhythm: regular Heart Sounds: Present: S1 & S2 - Extremities Extremities: no ischemia, pulses intact, pulses symmetrical, normal temperature, normal color Peripheral Pulses: within normal limits - Abdominal General gastrointestinal: soft, non-tender, non-distended, normal bowel sounds - Integumentary Integumentary: Present: clear, warm, dry - Psychiatric Psychiatric: other (Unable to assess given TBI) - Neurologic Neurologic: other (Unable to assess given TBI) - Allied Health Allied health notes reviewed: nursing Results - Labs CBC & Chem 7: 08/23/21 08:00 08/23/21 08:00 Labs: Laboratory Last Values WBC 5.2 K/mm3 (4.5-11.0) 08/23/21 08:00 RBC 2.99 M/mm3 (3.65-5.03) L 08/23/21 08:00 Hgb 9.3 gm/dl (11.8-15.2) L 08/23/21 08:00 Hct 28.9 % (35.5-45.6) L 08/23/21 08:00 MCV 97 fl (84-94) H 08/23/21 08:00 MCH 31 pg (28-32) 08/23/21 08:00 MCHC 32 % (32-34) 08/23/21 08:00 RDW 15.1 % (13.2-15.2) 08/23/21 08:00 Plt Count 104 K/mm3 (140-440) L 08/23/21 08:00 Lymph % (Auto) 23.1 % (13.4-35.0) 08/23/21 08:00 [place] % (Auto) 7.1 % (0.0-7.3) 08/23/21 08:00 Eos % (Auto) 3.3 % (0.0-4.3) 08/23/21 08:00 Baso % (Auto) 0.5 % (0.0-1.8) 08/23/21 08:00 Lymph # (Auto) 1.2 K/mm3 (1.2-5.4) 08/23/21 08:00 Kern # (Auto) 0.4 K/mm3 (0.0-0.8) 08/23/21 08:00 Eos # (Auto) 0.2 K/mm3 (0.0-0.4) 08/23/21 08:00 Baso # (Auto) 0.0 K/mm3 (0.0-0.1) 08/23/21 08:00 Seg Neutrophils % 66.0 % (40.0-70.0) 08/23/21 08:00 Seg Neutrophils # 3.4 K/mm3 (1.8-7.7) 08/23/21 08:00 Percent Retic 0.51 % (0.78-2.58) L 08/22/21 04:35 PT 14.7 Sec. (12.2-14.9) 08/22/21 15:25 INR 1.04 (0.87-1.13) 08/22/21 15:25 APTT 31.1 Sec. (24.2-36.6) 08/22/21 15:25 D-Dimer 342.69 ng/mlDDU (0-234) H 08/20/21 07:19 Sodium 146 mmol/L (137-145) H 08/23/21 08:00 Potassium 3.3 mmol/L (3.6-5.0) L 08/23/21 08:00 Chloride 113.4 mmol/L (98-107) H 08/23/21 08:00 Carbon Dioxide 22 mmol/L (22-30) 08/23/21 08:00 Anion Gap 14 mmol/L 08/23/21 08:00 BUN 25 mg/dL (9-20) H 08/23/21 08:00 Creatinine 0.8 mg/dL (0.8-1.3) 08/23/21 08:00 Estimated GFR > 60 ml/min 08/23/21 08:00 BUN/Creatinine Ratio 31 % 08/23/21 08:00 Glucose 125 mg/dL (75-100) H 08/23/21 08:00 POC Glucose 112 mg/dL (70-105) H 08/23/21 06:22 Calcium 9.5 mg/dL (8.4-10.2) 08/23/21 08:00 Iron 33 ug/dL (49-181) L 08/22/21 04:35 TIBC 142 mcg/dL (250-450) L 08/22/21 04:35 Ferritin 373.6 ng/mL (30.0-300.0) H 08/20/21 07:19 Total Bilirubin 0.60 mg/dL (0.1-1.2) 08/20/21 00:30 AST 25 units/L (5-40) 08/20/21 00:30 ALT 13 units/L (7-56) 08/20/21 00:30 Alkaline Phosphatase 143 units/L (35-129) H 08/20/21 00:30 Lactate Dehydrogenase 161 units/L (91-180) 08/20/21 07:19 C-Reactive Protein 3.10 mg/dL (0.00-1.30) H 08/20/21 07:19 Total Protein 8.6 g/dL (6.3-8.2) H 08/20/21 00:30 Albumin 4.4 g/dL (3.9-5) 08/20/21 00:30 Albumin/Globulin Ratio 1.0 % 08/20/21 00:30 Procalcitonin 0.05 ng/mL (<0.15) 08/20/21 07:19 Urine Color Yellow (Yellow) 08/20/21 21:45 Urine Turbidity Turbid (Clear) 08/20/21 21:45 Urine pH 5.0 (5.0-7.0) 08/20/21 21:45 Ur Specific [place] 1.020 (1.003-1.030) 08/20/21 21:45 Urine Protein 30 mg/dl mg/dL (Negative) 08/20/21 21:45 Urine Glucose (UA) Neg mg/dL (Negative) 08/20/21 21:45 Urine Ketones Neg mg/dL (Negative) 08/20/21 21:45 Urine Blood Lg (Negative) 08/20/21 21:45 Urine Nitrite Neg (Negative) 08/20/21 21:45 Urine Bilirubin Neg (Negative) 08/20/21 21:45 Urine Urobilinogen < 2.0 mg/dL (<2.0) 08/20/21 21:45 Ur Leukocyte Esterase Lg (Negative) 08/20/21 21:45 Urine WBC (Auto) 146.0 /HPF (0.0-6.0) H 08/20/21 21:45 Urine RBC (Auto) > 182.0 /HPF (0.0-6.0) 08/20/21 21:45 U Epithel Cells (Auto) < 1.0 /HPF (0-13.0) 08/20/21 21:45 Urine Bacteria (Auto) 3+ /HPF (Negative) 08/20/21 21:45 Urine WBC Clumps 2+ /HPF 08/20/21 21:45 Uric Acid Crystals Few 08/20/21 21:45 Amorphous Crystals Few 08/20/21 21:45 Hyaline Casts 7 /LPF 08/20/21 21:45 Urine Mucus 2+ /HPF 08/20/21 21:45 Urine Creatinine 106.4 mg/dL (0.1-20.0) H 08/20/21 21:45 Urine Sodium 51 mmol/L 08/20/21 21:45 Coronavirus (PCR) Negative (Negative) 08/20/21 09:38 Blood Type O POSITIVE 08/20/21 00:30 Antibody Screen Negative 08/20/21 00:30 Martins/IV: Voiding Method Indwelling Catheter Active Medications - Current Medications Current Medications: Generic Name Dose Route Start Last Admin Trade Name Freq PRN Reason Stop Dose Admin Acetaminophen 650 mg 08/20/21 02:19 Acetaminophen 325 Mg Tab PO Q4H PRN Pain MILD(1-3)/Fever >100.5/RIBERA Lipase/Protease/Amylase 1 each 08/20/21 11:34 Lipase 10,500/Protease 25,000/Amylase 43,750 (Units) Dr Reynolds FEEDTUBE PRN PRN For Clogged Feeding Tube Apixaban 5 mg 08/23/21 22:00 Apixaban 5 Mg Tab PO Q12HR TRACEE Protocol Dextrose 0 ml 08/20/21 02:31 Dextrose 10% *Hypoglycemia IV DIRECT PRN Hypoglycemia Protocol Ferric Sodium Gluconate 110 mls @ 100 mls/hr 08/22/21 14:00 08/23/21 09:42 Complex 125 mg/ Sodium IV 08/25/21 13:59 100 mls/hr Chloride DAILY TRACEE Administration Insulin Human Lispro 0 unit 08/20/21 07:30 08/23/21 09:05 Insulin Lispro 100 Unit/Ml SUB-Q Not Given ACHS TRACEE Protocol Magnesium Hydroxide 30 ml 08/20/21 02:19 Magnesium Hydroxide (Mom) Oral Liqd Udc PO Q4H PRN Constipation Morphine Sulfate 2 mg 08/20/21 02:19 Morphine 2 Mg/1 Ml Inj IV Q4H PRN Pain, Moderate (4-6) Morphine Sulfate 4 mg 08/20/21 02:19 Morphine 4 Mg/1 Ml Inj IV Q4H PRN Pain , Severe (7-10) Ondansetron HCl 4 mg 08/20/21 02:19 Ondansetron 4 Mg/2 Ml Inj IV Q8H PRN Nausea And Vomiting Simple Syrup 15 ml 08/20/21 11:34 Simple Syrup 15 Ml FEEDTUBE PRN PRN Hypoglycemia Simple Syrup 30 ml 08/20/21 11:34 Simple Syrup 15 Ml FEEDTUBE PRN PRN Hypoglycemia Sodium Bicarbonate 325 mg 08/20/21 11:34 Sodium Bicarbonate 325 Mg Tab FEEDTUBE PRN PRN For Clogged Feeding Tube Sodium Chloride 10 ml 08/20/21 10:00 08/23/21 09:55 Sodium Chloride 0.9% 10 Ml Flush Syringe IV 10 ml BID TRACEE Administration Sodium Chloride 10 ml 08/20/21 02:19 Sodium Chloride 0.9% 10 Ml Flush Syringe IV PRN PRN LINE FLUSH Nutrition/Malnutrition Assess - Dietary Evaluation Nutrition/Malnutrition Findings: Nutrition Notes Start: 08/20/21 11:12 Freq: Status: Active Protocol: Document 08/23/21 13:12 QUEENIE (Rec: 08/23/21 13:26 QUEENIE [id number]) Nutrition Notes Initial or Follow up Reassessment Current Diagnosis Acute Kidney Injury,Diabetes, Hypertension,Respiratory Failure Other Pertinent Diagnosis Pneumonia, Pancreatitis, Nephrolithiasis, Quadraplegia, ... Current Diet TF-Glucerna 1.2 Hugo @ 60 ml/hr (since L 08/20). Labs/Tests 08/23: Na 146, K 3.3, Cl 113.4 , CO2 22, BUN 25, Glu 125. Pertinent Medications 08/23: Ferric-Sodium Gluconate Complex, KCl, others nutritionally unremarkable. Height 5 ft 9 in Weight 86.183 kg [place] Body Weight (kg) 72.72 BMI 28.0 Weight change and time frame .003 Kg body weight change reported in 3 days. Weight Status Overweight Subjective/Other Information RD consult for routine F/U on TF tolerance. TF continues as prescribed and well tolerated, according to RN notes. Percent of energy/protein needs met: Prescribed TF-Glucerna 1.2 Hugo @ 60 ml/hr provides for energy/protein needs (1,724 Kcal/86 g) during LOS, 100% Kcal; 100% AA. Burn Absent Trauma Absent GI Symptoms Other Food Allergy No Skin Integrity/Comment Unspecified area of concern. Current % PO Other #1 Nutrition Diagnosis Inadequate oral intake Diagnosis Progress(for reassessment Continues documentation) Is patient on ventilator? Yes Is Patient Ambulatory and/or Out of Bed No REE-([facility]-confined to bed) 2027.888 Kcal/Kg value to use for calculation 20 Approximate Energy Requirements Using 1724 kcal/Kg Calculation Used for Recommendations Kcal/kg Additional Notes Protein: 0.8-1 g/Kg; 69-86 g/ day. Fluids: 1 ml/Kcal, or as per MD. Nutrition Intervention Nutrition Support: Continue Glucerna 1.2 Hugo @ 60 ml/hr. Flush: 100 ml water Q 4 hr, or as per MD. Kcal 1,724 Protein (gm) 86 Carbohydrates (gm) 165 Fat (gm) 86 Fluid (mL) 1,157 Fiber (gm) 23 % RDI: 100% Kcal; 100% AA. Goal #1 Provide at least 75% of energy /protein needs through Enteral Feeding during LOS. Goal #2 Maintain body weight within +/ -3% of admission body weight during LOS. Follow-Up By: 08/30/21 Additional Comments Continue monitoring TF tolerance and BM.
[2021-08-23] MEDS: APIXABAN 2.5 MG TAB PO SCH (21:12)
[2021-08-23] MEDS ORDERED: APIXABAN 5 MG TAB PO SCH ×2 (22:00)
[2021-08-24] MEDS: FREE WATER PO SCH ×4 (03:09→16:25)
[2021-08-24 05:28] LABS: Basophils % (Auto) 0.2 % (0.0-1.8); Eosinophils # (Auto) 0.2 K/mm3 (0.0-0.4); Eosinophils % (Auto) 3.5 % (0.0-4.3); Hematocrit 30.3 % (35.5-45.6); Hemoglobin 9.8 gm/dl (11.8-15.2); Lymphocytes # (Auto) 1.5 K/mm3 (1.2-5.4); Lymphocytes % (Auto) 22.1 % (13.4-35.0); Mean Corpuscular HGB Conc 32 % (32-34); Mean Corpuscular Volume 96 fl (84-94); Monocytes # (Auto) 0.4 K/mm3 (0.0-0.8); Monocytes % (Auto) 5.5 % (0.0-7.3); Platelet Count 109 K/mm3 (140-440); Red Blood Count 3.15 M/mm3 (3.65-5.03); Red Cell Distribution Width 14.8 % (13.2-15.2)
[2021-08-24 05:42] LABS: BUN/Creatinine Ratio 25; Blood Urea Nitrogen 20 mg/dL (9-20); Calcium 9.6 mg/dL (8.4-10.2); Hemolysis Index 3
[2021-08-24] MEDS: INSULIN LISPRO 100 UNIT/ML SUB-Q SCH ×3 (09:27→16:20)
[2021-08-24] MEDS: APIXABAN 2.5 MG TAB PO SCH (09:27)
[2021-08-24] MEDS: SODIUM FERRIC GLUCON/SUCRO 125 MG in SODIUM CHLORIDE 0.9% 100 ML IV SCH (09:29)
--- NOTE | 2021-08-24 13:18 | Progress Note ---
Assessment and Plan Impression: * Acute kidney injury secondary to dehydration * Hypernatremia * Pancreatic mass * Bilateral PNA --CT abd/pelvis: Airspace consolidation of the right lung base and mild groundglass opacities in the left lung base --COVID 19 PCR negative (Aug 19) * Pancreaticocutaneous fistula * Nephrolithiasis, nonobstructive * Quadraplegia * Chronic respiratory failure s/p trach Plan: * Sodium improved to 141 * Creatinine improved 1.5->1.1->0.8 * Continue free H2O w/ TF - 200ml [id number] * Replete K prn- K at goal * Urine studies reviewed * Abd/Pelvis CT reviewed - no hydro, bilateral stones which are nonobstructive * Abx per primary team - Vanco/Cefepime/Levaquin * Surgery recommendations noted * GI consultation noted * Avoid potential nephrotoxins * Dose medications for renal function - monitor Vanco levels closely * AM labs * Nephrology will follow peripherally given improved labs Subjective Date of service: 08/24/21 Interval history: Resting in bed, no major clinical changes noted. Running on tube feeds, no IVF. Chart, vitals, labs reviewed Objective - Exam Narrative Exam: General appearance: well-developed, well-nourished EENT: ATNC Neck: Present: Other (trach) Respiratory: Decreased Breath Sounds Heart: regular, S1S2 Gastrointestinal: Present: other (PEG tube) Integumentary: no rash, warm and dry Musculoskeletal: Present: other (no edema) - Vital Signs Vital signs: Vital Signs - 12hr 08/24/21 08/24/21 08/24/21 05:19 05:40 07:02 Temperature 98.7 F Pulse Rate 73 Respiratory 18 Rate Blood Pressure 102/61 O2 Sat by Pulse 97 97 Oximetry O2 Sat by Pulse 96 Oximetry [ Assessment] 08/24/21 08:37 Temperature Pulse Rate Respiratory Rate Blood Pressure O2 Sat by Pulse 95 Oximetry O2 Sat by Pulse Oximetry [ Assessment] - Lab 08/24/21 04:45 08/24/21 04:45 Most recent lab results Calcium 9.6 mg/dL (8.4-10.2) 08/24/21 04:45 Urine Creatinine 106.4 mg/dL (0.1-20.0) H 08/20/21 21:45 Urine Sodium 51 mmol/L 08/20/21 21:45 Medications & Allergies - Medications Allergies/Adverse Reactions: Allergies No Known Allergies Allergy (Verified 08/19/21 23:19) Active Medications: Generic Name Dose Route Start Last Admin Trade Name Freq PRN Reason Stop Dose Admin Acetaminophen 650 mg 08/20/21 02:19 Acetaminophen 325 Mg Tab PO Q4H PRN Pain MILD(1-3)/Fever >100.5/RIBERA Lipase/Protease/Amylase 1 each 08/20/21 11:34 Lipase 10,500/Protease 25,000/Amylase 43,750 (Units) Dr Reynolds FEEDTUBE PRN PRN For Clogged Feeding Tube Apixaban 2.5 mg 08/23/21 22:00 08/24/21 09:27 Apixaban 2.5 Mg Tab PO 2.5 mg Q12HR TRACEE Administration Protocol Dextrose 0 ml 08/20/21 02:31 Dextrose 10% *Hypoglycemia IV DIRECT PRN Hypoglycemia Protocol Ferric Sodium Gluconate 110 mls @ 100 mls/hr 08/22/21 14:00 08/24/21 09:29 Complex 125 mg/ Sodium IV 08/25/21 13:59 100 mls/hr Chloride DAILY TRACEE Administration Insulin Human Lispro 0 unit 08/20/21 07:30 08/24/21 09:27 Insulin Lispro 100 Unit/Ml SUB-Q Not Given ACHS [facility] Protocol Magnesium Hydroxide 30 ml 08/20/21 02:19 Magnesium Hydroxide (Mom) Oral Liqd Udc PO Q4H PRN Constipation Morphine Sulfate 2 mg 08/20/21 02:19 Morphine 2 Mg/1 Ml Inj IV Q4H PRN Pain, Moderate (4-6) Morphine Sulfate 4 mg 08/20/21 02:19 Morphine 4 Mg/1 Ml Inj IV Q4H PRN Pain , Severe (7-10) Ondansetron HCl 4 mg 08/20/21 02:19 Ondansetron 4 Mg/2 Ml Inj IV Q8H PRN Nausea And Vomiting Simple Syrup 15 ml 08/20/21 11:34 Simple Syrup 15 Ml FEEDTUBE PRN PRN Hypoglycemia Simple Syrup 30 ml 08/20/21 11:34 Simple Syrup 15 Ml FEEDTUBE PRN PRN Hypoglycemia Sodium Bicarbonate 325 mg 08/20/21 11:34 Sodium Bicarbonate 325 Mg Tab FEEDTUBE PRN PRN For Clogged Feeding Tube Sodium Chloride 10 ml 08/20/21 10:00 08/24/21 09:27 Sodium Chloride 0.9% 10 Ml Flush Syringe IV 10 ml BID TRACEE Administration Sodium Chloride 10 ml 08/20/21 02:19 Sodium Chloride 0.9% 10 Ml Flush Syringe IV PRN PRN LINE FLUSH
--- NOTE | 2021-08-24 13:27 | Discharge Summary ---
Providers - Providers Date of Admission: 08/20/21 02:19 Date of discharge: 08/24/21 Attending physician: SEDRICK PEREZ MD 08/20/21 02:19 Consult to Dietitian/Nutrition [CONS] Routine Physician Instructions: Reason For Exam: Reason for Consult: Write/Manage Tube Feeding Consult to Physician [CONS] Routine Comment: Consulting Provider: GIACOMO STERN Physician Instructions: Reason For Exam: HYPERNATREMIA 08/20/21 07:03 Consult to Physician [CONS] Routine Comment: Consulting Provider: DEJON PABLO Physician Instructions: Reason For Exam: Bleeding colostomy 08/20/21 10:29 Consult to Physician [CONS] Routine Comment: Consulting Provider: SHARONDA FRANKS Physician Instructions: Reason For Exam: bleeding pancreaticocutaneous fistula 08/20/21 12:47 Consult to Physician [CONS] Routine Comment: Consulting Provider: RYAN CRUZ Physician Instructions: Reason For Exam: suspected pancreatic malignancy Primary care physician: [facility]USTRI[facility]STRESS Hospitalization Reason for admission: Lower GI bleed; bleeding from ostomy Condition: Stable Pertinent studies: Reviewed. Procedures: None. 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 She was hemodynamically stable in the ED. CT abdomen and pelvis with contrast revealed dilation of the common bile duct and pancreatic duct due to a mass suspicious of pancreatic neoplasm; airspace consolidations of the right lower lung base with mild groundglass opacities in the left lung base concerning for pneumonia; and bilateral nonobstructive renal stones and bladder stones. With further history provided by the patient's daughter, it was determined that the mass is not a neoplasm but secondary to multiple abdominal surgeries and likely adhesions and scar tissue. The patient was initiated on IV antibiotics for treatment of presumed community-acquired pneumonia. General surgery and gastroenterology were consulted for further management of the bleeding from the ostomy. On presentation, the patient's hemoglobin was 13.5. General surgery recommended no intervention at this period of time as the patient was not having any active bleeding. Gastroenterology did not recommend any intervention at this time. A CT angiogram of the abdomen and pelvis was ordered to evaluate for possible splenic artery pseudoaneurysm and was found to be negative. There was also no acute bleeding seen on imaging. The patient was restarted on Eliquis at 2.5 mg twice daily without any signs of bleeding. Patient is medically clear for discharge Disposition: 01 HOME / SELF CARE / HOMELESS Final Discharge Diagnosis (Prints w/discharge instructions): Bleeding from colostomy/lower GI bleeding, iron deficiency anemia Time spent for discharge: 45 min Core Measure Documentation - Palliative Care Palliative Care/ Comfort Measures: Not Applicable - Core Measures Any of the following diagnoses?: none Exam - Constitutional Vitals: Temp Pulse Resp BP Pulse Ox 98.7 F 73 18 102/61 95 08/24/21 05:40 08/24/21 05:40 08/24/21 05:40 08/24/21 05:40 08/24/21 08:37 General appearance: Present: no acute distress, well-nourished, other ( Nonresponsive secondary to TBI) - EENT Eyes: Present: PERRL, EOM intact ENT: hearing intact, clear oral mucosa, other (Trach in place) - Neck Neck: Present: supple, normal ROM - Respiratory Respiratory effort: normal Respiratory: bilateral: diminished (Trach collar) - Cardiovascular Rhythm: regular Heart Sounds: Present: S1 & S2 - Extremities Extremities: no ischemia, pulses intact, pulses symmetrical, normal temperature, normal color Peripheral Pulses: within normal limits - Abdominal General gastrointestinal: Present: soft, non-tender, non-distended, normal bowel sounds, other (Ostomy in left lower quadrant; G-tube in place) Male genitourinary: Present: deferred - Rectal Rectal Exam: deferred - Integumentary Integumentary: Present: clear, warm, dry - Musculoskeletal Musculoskeletal: generalized weakness, other (Paraplegia) - Psychiatric Psychiatric: other (Unable to assess given TBI) - Neurologic Neurologic: other (Unable to assess given TBI) - Allied Health Allied health notes reviewed: nursing Plan Activity: no restrictions Diet: other (Tube feeds) Additional Instructions: Patient is a 56-year-old male with past medical history of noninsulin-dependent type 2 diabetes mellitus and 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 She was hemodynamically stable in the ED. CT abdomen and pelvis with contrast revealed dilation of the common bile duct and pancreatic duct due to a mass suspicious of pancreatic neoplasm; airspace consolidations of the right lower lung base with mild groundglass opacities in the left lung base concerning for pneumonia; and bilateral nonobstructive renal stones and bladder stones. With further history provided by the patient's daughter, it was determined that the mass is not a neoplasm but secondary to multiple abdominal surgeries and likely adhesions and scar tissue. The patient was initiated on IV antibiotics for treatment of presumed community-acquired pneumonia. General surgery and gastroenterology were consulted for further management of the bleeding from the ostomy. On presentation, the patient's hemoglobin was 13.5. General surgery recommended no intervention at this period of time as the patient was not having any active bleeding. Gastroenterology did not recommend any intervention at this time. A CT angiogram of the abdomen and pelvis was ordered to evaluate for possible splenic artery pseudoaneurysm and was found to be negative. There was also no acute bleeding seen on imaging. The patient was restarted on Eliquis at 2.5 mg twice daily without any signs of bleeding. Patient is medically clear for discharge Care Plan Goals: Patient is medically clear for discharge. 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 She was hemodynamically stable in the ED. CT abdomen and pelvis with contrast revealed dilation of the common bile duct and pancreatic duct due to a mass suspicious of pancreatic neoplasm; airspace consolidations of the right lower lung base with mild groundglass opacities in the left lung base concerning for pneumonia; and bilateral nonobstructive renal stones and bladder stones. With further history provided by the patient's daughter, it was determined that the mass is not a neoplasm but secondary to multiple abdominal surgeries and likely adhesions and scar tissue. The patient was initiated on IV antibiotics for treatment of presumed community-acquired pneumonia. General surgery and gastroenterology were consulted for further management of the bleeding from the ostomy. On presentation, the patient's hemo globin was 13.5. General surgery recommended no intervention at this period of time as the patient was not having any active bleeding. Gastroenterology did not recommend any intervention at this time. A CT angiogram of the abdomen and pelvis was ordered to evaluate for possible splenic artery pseudoaneurysm and was found to be negative. There was also no acute bleeding seen on imaging. The patient was restarted on Eliquis at 2.5 mg twice daily without any signs of bleeding. Patient is medically clear for discharge Follow up with: PRIMARY CARE, [Primary Care Provider] - 3-5 Days
[2021-08-24 18:32] VITALS: BP 104/59
== END 2021-08-24 19:00 | disposition home or self-care (01) | DRG 393 ==
LOC: ED 23:07 → 3A 08-20 02:19
PROVIDERS: ADMIT Internal Medicine Geriatric Medicine; ATTEND Student in an Organized Health Care Education/Training Program
DX: K94.01 Colostomy hemorrhage (principal); J18.9 Pneumonia, unspecified organism; G82.50 Quadriplegia, unspecified; N17.9 Acute kidney failure, unspecified; E86.0 Dehydration; Z20.822 Contact with and (suspected) exposure to COVID-19; E11.9 Type 2 diabetes mellitus without complications; Z93.0 Tracheostomy status; I25.2 Old myocardial infarction; I10 Essential (primary) hypertension; E87.0 Hyperosmolality and hypernatremia; J96.10 Chronic respiratory failure, unspecified whether with hypoxia or hypercapnia; N20.0 Calculus of kidney; K86.89 Other specified diseases of pancreas; E86.9 Volume depletion, unspecified; Z86.711 Personal history of pulmonary embolism; D64.9 Anemia, unspecified; D69.6 Thrombocytopenia, unspecified; D50.9 Iron deficiency anemia, unspecified; Y83.3 Surgical operation with formation of external stoma as the cause of abnormal reaction of the patient, or of later complication, without mention of misadventure at the time of the procedure
CPT/HCPCS: 36415; 74174; 74176; 80048; 80053; 81001; 82565; 82570; 82728; 82947; 82962; 83550; 83615; 84145; 84300; 85025; 85027; 85045; 85379; 85610; 85730; 86140; 86850; 86900; 86901; 94760; G0378; Q0162; Q9967; J0692; J1815; J1956; J2916; J3370; J3480; J7030; J7040; J7070; J7120; U0003